=== PATIENT | female | born 1940 | race Caucasian/White ===

== ENCOUNTER 2016-04-17 12:35 | Emergency (ER) | payer MEDICARE ==
[~2016-04-17 12:35] MED LIST: AMLO25TA PO; CALC600T7 PO; CLOT1CRE71 TOP; ECOT325T3 PO; FISH500C PO; KEFL500C7 PO; MAGN250T2 PO; OMEP20CA3 PO; OXYB10TA PO; SIMV10TA2 PO; VITA1TAB7 PO; VITA500T53 PO; [UNRECOGNIZED DRUG - CODE] PO; [UNRECOGNIZED DRUG - CODE] PO
[2016-04-17] MEDS ORDERED: ONDANSETRON 4MG/2ML VIAL (J2405) As Ordered ONE (14:05)
[2016-04-17] MEDS ORDERED: GASTROGRAFIN SOLUTION 30ML (Q9963) As Ordered ONE (14:09)
[2016-04-17 14:22] LABS: RENAL EPITHELIAL CELLS 1 /HPF
[2016-04-17 14:28] LABS: BASO % 0.2 % (0.0-1.0); EOS # 0.3 K/mm3 (0.0-0.50); EOS % 4.6 % (0.0-3.0); LARGE UNSTAINED CELL # 0.1 K/mm3 (0.0-0.4); LARGE UNSTAINED CELL % 2.5 % (0.0-4.0); LYMPH # 0.5 K/mm3 (1.5-4.5); MEAN CORPUSCULAR HEMOGLOBIN 28.5 pg (27.0-33.0); MEAN CORPUSCULAR HGB CONC 32.8 g/dl (32.0-36.5); MONO # 0.2 K/mm3 (0.0-0.8); MONO % 3.5 % (0.0-5.0); NEUTROPHILS # 4.6 K/mm3 (1.8-7.7); NEUTROPHILS % 80.2 % (36.0-66.0); PLATELET COUNT, AUTOMATED 194 k/mm3 (150-450); RED CELL DISTRIBUTION WIDTH 13.4 % (11.5-14.5); WHITE BLOOD COUNT 5.7 K/mm3 (4.0-10.0)
[2016-04-17 14:50] LABS: ALBUMIN 3.3 GM/DL (3.2-5.2); ALBUMIN/GLOBULIN RATIO 0.73 (1.00-1.93); BILIRUBIN,DIRECT 2.1 MG/DL (0.0-0.2); BILIRUBIN,TOTAL 2.7 MG/DL (0.2-1.0); CALCIUM LEVEL 8.8 MG/DL (8.8-10.2); CREATININE FOR GFR 1.3 MG/DL (0.55-1.02); GLOMERULAR FILTRATION RATE 42.4 (>39); POTASSIUM SERUM 3.4 MEQ/L (3.5-5.1); TOTAL PROTEIN 7.8 GM/DL (6.4-8.2)
[2016-04-17 14:50] LABS: MICROSCOPIC INDICATED? NO (NO)
[2016-04-17] MEDS ORDERED: ISOVUE-370 76% 100ML VIAL (Q9967) As Ordered ONE (15:34)
--- NOTE | 2016-04-17 16:08 | REP ---
CT abdomen and pelvis with IV and oral contrast: History: Question obstruction, abdominal pain. Generalized. Comparison CT study is from 03/27/2016 done at [facility]. This comparison study was read as showing evidence of mesenteric panniculitis and prior cholecystectomy and hysterectomy. CT contrast dose: 100 mL of Isovue 370 is administered intravenously. Findings: Digital preliminary aircraft captain radiograph demonstrates a dextroconvex curve and clips in the right upper quadrant. Bowel gas pattern is normal. The patient status post left mastectomy and prosthesis is visible. The lung bases are essentially clear except for mild bibasilar fibrosis. No pleural effusion is seen. There is a granulomatous calcification in the dome of the liver unchanged from the comparison study. No focal liver mass lesion is seen. The spleen is unremarkable. No adrenal lesion is seen on either side. There is a cyst in the upper pole of the right kidney measuring 2.8 cm in greatest diameter. No pancreatic abnormality is observed. Gallbladder surgically absent. The abdominal aorta is quite tortuous but non-aneurysmal. Atherosclerotic vascular calcification is seen. No retroperitoneal mass or adenopathy is seen. A normal appendix is seen against the pelvic side wall. No ovarian abnormality is seen. Uterus is surgically absent. The urinary bladder is intact. Small and large intestinal bowel loops are normal in the abdomen and pelvis. There is a very small sliding-type hiatal hernia. No other abdominal wall defect is seen. Bone window settings show no bony destructive lesion. There is degenerative disc changes in the lumbar spine. The small bowel mesenteric changes noted previously are again seen unchanged. Impression: 1. Small sliding-type hiatal hernia. 2. 2.8 cm right renal cyst. 3. Tortuous abdominal aorta with atherosclerotic changes. 4. Post-cholecystectomy and hysterectomy. 5. No acute intra-abdominal abnormality. 6. The scattered mesenteric lymph nodes, mesenteric lymph node calcifications, and mild fibrotic changes in the mesenteric fat seen on the previous study are again noted unchanged. Signed by Regulo Marshall MD 04/17/2016 04:44 P
[2016-04-17] MEDS ORDERED: MAGNESIUM CITRATE 300 ML BTL As Ordered ONE (17:00)
--- NOTE | 2016-04-17 17:12 | EDDOCDS ---
Physician Documentation [facility] Name: Jackson Tobias Age: 76 yrs Sex: Female : 1940 Arrival Date: 04/17/2016 Time: 12:35 Bed I6 / 28 Private MD: Treva Cowan R Disposition: 04/17/16 16:31 Discharged to Home/Self Care. Impression: Generalized abdominal pain, Constipation, unspecified. - Condition is Stable. - Discharge Instructions: Abdominal Pain, Adult, Constipation, Adult. - Medication Reconciliation, Local Pharmacy Hours form. - Follow up: Emergency Department; When: As needed; Reason: Worsening of conditions. Follow up: Private Physician; When: 2 - 3 days; Reason: Wound/Symptom Recheck, Recheck today's complaints, Continuance of care. - Problem is new. - Symptoms are unchanged. - Notes: DRINK HALF THE BOTTLE OF MAG CITRATE WITH SOME GATORADE AT HOME TONIGHT. IF YOU ARE NOT HAVING ANY RESULTS WITH THIS AFTER APPROXIMATELY 1-2 HOURS, YOU MAY DRINK THE REST OF THE BOTTLE. IT IS ADVISED TO STAY HOME NEAR THE BATHROOM AFTER YOU START TO DRINK THIS, IT CAN WORK FAST TO HELP MOVE YOUR BOWELS. FOLLOW UP WITH YOUR PRIMARY CARE PROVIDER WITHIN THE NEXT FEW DAYS AND RETURN TO THE ER WITH ANY WORSENING SYMPTOMS. Historical: - Allergies: SULFA (SULFONAMIDES); - Home Meds: 1. oxybutynin chloride 5 mg Oral tab 2 times per day 2. simvastatin 20 mg oral tab once daily 3. omeprazole 40 mg Oral cpDR 1 cap 2 times per day 4. aspirin 325 mg Oral tab 1 tab once daily 5. amlodipine 2.5 mg Oral tab once daily 6. Miralax 17 gram Oral pwpk 1 packet once daily 7. clotrimazole and betamethasone cream 0.005% daily 8. Calcium + Vitamin D 630mg and 400mg vit d Oral daily 9. shark cartilage (bulk) 750mg 2.25gm miscellaneous powd twice a day 10. triple omega 3-6-9 w/fish flax and borage oils daily 11. BCG treatments - PMHx: left breast cancer; cancerous tumors bladder; Hypercholesterolemia; GERD; Hypertension; constipation; TIA; - PSHx: bladder resection; Cholecystectomy; Hysterectomy; breast surgery; Endoscopy, Lower; Endoscopy, Upper; - Social history: Smoking status: Patient states former smoker of tobacco. No barriers to communication noted, The patient speaks fluent Swedish, Speaks appropriately for age. - Family history: Not pertinent. - : The pt / caregiver states he / she is not on anticoagulants. Home medication list is obtained from the patient. - Exposure Risk Screening:: None identified. Vital Signs: 04/17 12:37 BP 126 / 81; Pulse 120; Resp 20; Temp 98.9(O); Pulse Ox 96% on R/A; Weight 80.29 kg / ct3 177.01 lbs (R); Height 5 ft. 8 in. (172.72 cm) (R); Pain 0/10; 17:08 BP 120 / 80; Pulse 104; Resp 16; Temp 97.3(O); jmk 12:37 Body Mass Index 26.91 (80.29 kg, 172.72 cm) ct3 MDM: 13:35 Financial registration complete. lg 13:51 Ondansetron 4 mg IVP once ordered. dt4 13:51 IV Saline Lock ordered. dt4 13:51 Undress patient appropriately for examination ordered. dt4 13:51 NS 0.9% 500 ml IV at bolus once ordered. dt4 13:52 Amylase Ordered. EDMS 13:52 Basic Metabolic Profile Ordered. EDMS 13:52 CBC with Diff Ordered. EDMS 13:52 Lipase Ordered. EDMS 13:52 Liver Profile Ordered. EDMS 13:52 Urinalysis Ordered. EDMS 13:52 Urine Culture Ordered. EDMS 13:52 CT ABD & PELVIS: IV and Oral Contrast Ordered. EDMS 13:53 NOTHING BY MOUTH+DIET ordered. EDMS 14:17 [facility] Payment Agreement was scanned into [employer] and attached to record. lg 14:19 Diatrizoate Meglumine & Sodium Liquid 10 ml PO once; mix in 290cc of water - admin at kc3 2:40 ordered. 14:19 Diatrizoate Meglumine & Sodium Liquid 10 ml PO once; mix in 290cc of water - admin at kc3 2:40 ordered. 16:23 Magnesium Citrate Liquid 300 ml PO once; Dispense home with pt. ordered. dt4 Administered Medications: 14:19 Drug: NS 0.9% 500 ml [sodium chloride 0.9 % intravenous solution] Route: IV; Rate: kc3 bolus; Site: right antecubital; 14:53 Follow up: IV Status: Completed infusion kc3 14:20 Drug: Ondansetron 4 mg [ondansetron HCl 2 mg/mL intravenous solution (2 mL)] Route: kc3 IVP; Site: right antecubital; 14:21 Drug: Diatrizoate Meglumine & Sodium 10 ml [diatrizoate meglumine and diat.sodium 66 kc3 %-10 % oral solution (10 mL)] Route: PO; 14:52 Drug: Diatrizoate Meglumine & Sodium 10 ml [diatrizoate meglumine and diat.sodium 66 kc3 %-10 % oral solution (10 mL)] Route: PO; 17:08 Drug: Magnesium Citrate 300 ml [magnesium citrate oral solution (300 mL)] Route: PO; britney Signatures: Dispatcher [employer] EDJackson Nixon RN RN jmk Michelson, Staci, RN RN srm Ganter, LoriLee, Reg Reg lg Mohini Rodriguez, PA-C PA-C dt4 Khalida VerdeRN RN kc3 The chart was reviewed and I authenticate all verbal orders and agree with the evaluation and treatment provided.Attachments: 14:17 [facility] Payment Agreement lg MTDD
--- NOTE | 2016-04-17 17:12 | EDDOCDS ---
Nurse's Notes [facility] Name: Jackson Tobias Age: 76 yrs Sex: Female : 1940 Arrival Date: 04/17/2016 Time: 12:35 Bed I6 / 28 Private MD: Treva Cowan R Diagnosis: Generalized abdominal pain;Constipation, unspecified Presentation: 04/17 12:37 Presenting complaint: Patient states: last BM March. had enema wed night and had srm some mucous and again yesterday and had small amount. constipation has been since March. Adult Sepsis Screening: The patient does not have new or worsening altered mentation. Patient's respiratory rate is less than 22. Systolic blood pressure is greater than 100. Patient has a qSOFA score of 0- Negative Sepsis Screen. Suicide/Homicide risk assessment- the patient denies having any suicidal and/or homicidal ideations and does not present with any other emotional, behavioral or mental health complaints. Status: Patient is not a substance abuse services director or dependent. Transition of care: patient was not received from another setting of care. 12:37 Acuity: LOREE Level 3 srm 12:37 Method Of Arrival: Walkin/Carried/Asstd srm Triage Assessment: 12:48 General: Appears in no apparent distress, Behavior is appropriate for age, cooperative. srm Pain: Denies pain. GI: Reports constipation, nausea. Historical: - Allergies: SULFA (SULFONAMIDES); - Home Meds: 1. oxybutynin chloride 5 mg Oral tab 2 times per day 2. simvastatin 20 mg oral tab once daily 3. omeprazole 40 mg Oral cpDR 1 cap 2 times per day 4. aspirin 325 mg Oral tab 1 tab once daily 5. amlodipine 2.5 mg Oral tab once daily 6. Miralax 17 gram Oral pwpk 1 packet once daily 7. clotrimazole and betamethasone cream 0.005% daily 8. Calcium + Vitamin D 630mg and 400mg vit d Oral daily 9. shark cartilage (bulk) 750mg 2.25gm miscellaneous powd twice a day 10. triple omega 3-6-9 w/fish flax and borage oils daily 11. BCG treatments - PMHx: left breast cancer; cancerous tumors bladder; Hypercholesterolemia; GERD; Hypertension; constipation; TIA; - PSHx: bladder resection; Cholecystectomy; Hysterectomy; breast surgery; Endoscopy, Lower; Endoscopy, Upper; - Social history: Smoking status: Patient states former smoker of tobacco. No barriers to communication noted, The patient speaks fluent Estonian, Speaks appropriately for age. - Family history: Not pertinent. - : The pt / caregiver states he / she is not on anticoagulants. Home medication list is obtained from the patient. - Exposure Risk Screening:: None identified. Screenin:02 Screening information is obtained from the patient. Fall risk: No risks identified. kc3 Assistance ADL's: requires no assistance with activities of daily living. Abuse/DV Screen: The patient / caregiver reports he/she is: not in a situation that causes fear, pain or injury. Nutritional screening: No deficits noted. home support is adequate. 17:08 Advance Directives: Currently, there is no health care proxy. There is no active DNR k order. There is no living will. There is no Power of Manager Client. Advance directive information has not previously been placed in an [facility] medical record. Assessment: 14:00 General: Appears in no apparent distress, comfortable, Behavior is appropriate for age, kc3 cooperative. Neurological: Level of Consciousness is awake, alert, obeys commands, Oriented to person, place, time. Respiratory: Respiratory effort is even, unlabored. GI: Abdomen is obese, Bowel sounds present X 4 quads. Abd is soft and non tender X 4 quads. Reports constipation. Derm: Skin is pink, warm & dry. 14:37 Adult Sepsis Screening: The patient does not have new or worsening altered mentation. kc3 Patient's respiratory rate is less than 22. Systolic blood pressure is greater than 100. Patient has a qSOFA score of 0- Negative Sepsis Screen. 15:22 General:. kc3 17:08 General: Appears receptive to discharge regarding use of citrate of magnesium. [facility] Vital Signs: 12:37 BP 126 / 81; Pulse 120; Resp 20; Temp 98.9(O); Pulse Ox 96% on R/A; Weight 80.29 kg ct3 (R); Height 5 ft. 8 in. (172.72 cm) (R); Pain 0/10; 17:08 BP 120 / 80; Pulse 104; Resp 16; Temp 97.3(O); jmk 12:37 Body Mass Index 26.91 (80.29 kg, 172.72 cm) ct3 Vitals: 12:37 Log In Time: April 17, 2016 at 12:35. ct3 ED Course: 12:36 Patient visited by Gina Porras PCA. ct3 12:36 Treva Cowan is Private Physician. ct3 12:36 Patient moved to Waiting ct3 12:38 Patient moved to Pre RCE ct3 12:39 Triage Initiated srm 13:09 Patient moved to Triage 3 dy 13:13 Patient visited by Jovita Ashraf PCA. jb5 13:20 Mohini Rodriguez PA-C is PHCP. dt4 13:20 Alexia Galeas MD is Attending Physician. dt4 13:21 Patient visited by Mohini Rodriguez PA-C. dt4 13:46 Patient moved to I6 jb5 13:59 Patient visited by Jovita Ashraf PCA. jb5 13:59 Urinalysis Sent. jb5 13:59 Urine Culture Sent. jb5 14:16 Patient name changed from Jackson\S\K\S\Jatinder\S\ to Jackson\S\Skye\S\Jatinder. EDMS 14:17 [facility] Payment Agreement was scanned into [employer] and attached to record. lg 14:19 Amylase Sent. kc3 14:19 Basic Metabolic Profile Sent. kc3 14:20 Patient visited by Khalida Verde RN. kc3 14:20 CBC with Diff Sent. kc3 14:20 Lipase Sent. kc3 14:20 Liver Profile Sent. kc3 14:20 Inserted saline lock: 20 gauge in right antecubital area and blood collected. The kc3 patient tolerated the procedure well. performed by Jackson Acuna RN. 14:52 Patient visited by Khalida Verde RN. kc3 15:03 The patient / caregiver is instructed regarding the plan of care and ED course. kc3 15:49 Patient visited by Khalida Verde RN. kc3 16:22 CT ABD & PELVIS: IV and Oral Contrast Returned. EDMS 17:08 Discontinued lock intact, bleeding controlled, pressure dressing applied, No jmk redness/swelling at site. No procedures done that require assistance. Administered Medications: 14:19 Drug: NS 0.9% 500 ml [sodium chloride 0.9 % intravenous solution] Route: IV; Rate: kc3 bolus; Site: right antecubital; 14:53 Follow up: IV Status: Completed infusion kc3 14:20 Drug: Ondansetron 4 mg [ondansetron HCl 2 mg/mL intravenous solution (2 mL)] Route: kc3 IVP; Site: right antecubital; 14:21 Drug: Diatrizoate Meglumine & Sodium 10 ml [diatrizoate meglumine and diat.sodium 66 kc3 %-10 % oral solution (10 mL)] Route: PO; 14:52 Drug: Diatrizoate Meglumine & Sodium 10 ml [diatrizoate meglumine and diat.sodium 66 kc3 %-10 % oral solution (10 mL)] Route: PO; 17:08 Drug: Magnesium Citrate 300 ml [magnesium citrate oral solution (300 mL)] Route: PO; [facility] Order Results: Lab Order: Amylase; SPEC'M 04/17/16 14:08 Test: AMYLASE; Value: 35; Range: 25-115; Units: U/L; Status: F Lab Order: Basic Metabolic Profile; SPEC'M 04/17/16 14:08 Test: GLUCOSE, FASTING; Value: 111; Range: 83-110; Abnormal: Above high normal; Units: MG/DL; Status: F Test: BLOOD UREA NITROGEN; Value: 21; Range: 7-18; Abnormal: Above high normal; Units: MG/DL; Status: F Test: CREATININE FOR GFR; Value: 1.30; Range: 0.55-1.02; Abnormal: Above high normal; Units: MG/DL; Status: F Test: GLOMERULAR FILTRATION RATE; Value: 42.4; Range: >39; Status: F Test: SODIUM LEVEL; Value: 136; Range: 136-145; Units: MEQ/L; Status: F Test: POTASSIUM SERUM; Value: 3.4; Range: 3.5-5.1; Abnormal: Below low normal; Units: MEQ/L; Status: F Test: CHLORIDE LEVEL; Value: 102; Range: 98-107; Units: MEQ/L; Status: F Test: CARBON DIOXIDE LEVEL; Value: 22; Range: 21-32; Units: MEQ/L; Status: F Test: ANION GAP; Value: 12; Range: 8-16; Units: MEQ/L; Status: F Test: CALCIUM LEVEL; Value: 8.8; Range: 8.8-10.2; Units: MG/DL; Status: F Test Note: ; Units are mL/min/1.73 m2 Chronic Kidney Disease Staging per NKF: Stage I & II GFR >=60 Normal to Mildly Decreased Stage III GFR 30-59 Moderately Decreased Stage IV GFR 15-29 Severely Decreased Stage V GFR <15 Very Little GFR Left ESRD GFR <15 on 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 Lab Order: CBC with Diff; SPEC'M 04/17/16 14:08 Test: WHITE BLOOD COUNT; Value: 5.7; Range: 4.0-10.0; Units: K/mm3; Status: F Test: RED BLOOD COUNT; Value: 5.48; Range: 4.00-5.40; Abnormal: Above high normal; Units: M/mm3; Status: F Test: HEMOGLOBIN; Value: 15.6; Range: 12.0-16.0; Units: g/dl; Status: F Test: HEMATOCRIT; Value: 47.7; Range: 36.0-47.0; Abnormal: Above high normal; Units: %; Status: F Test: MEAN CORPUSCULAR VOLUME; Value: 87.0; Range: 80.0-96.0; Units: fl; Status: F Test: MEAN CORPUSCULAR HEMOGLOBIN; Value: 28.5; Range: 27.0-33.0; Units: pg; Status: F Test: MEAN CORPUSCULAR HGB CONC; Value: 32.8; Range: 32.0-36.5; Units: g/dl; Status: F Test: RED CELL DISTRIBUTION WIDTH; Value: 13.4; Range: 11.5-14.5; Units: %; Status: F Test: PLATELET COUNT, AUTOMATED; Value: 194; Range: 150-450; Units: k/mm3; Status: F Test: NEUTROPHILS %; Value: 80.2; Range: 36.0-66.0; Abnormal: Above high normal; Units: %; Status: F Test: LYMPH %; Value: 9.0; Range: 24.0-44.0; Abnormal: Below low normal; Units: %; Status: F Test: MONO %; Value: 3.5; Range: 0.0-5.0; Units: %; Status: F Test: EOS %; Value: 4.6; Range: 0.0-3.0; Abnormal: Above high normal; Units: %; Status: F Test: BASO %; Value: 0.2; Range: 0.0-1.0; Units: %; Status: F Test: LARGE UNSTAINED CELL %; Value: 2.5; Range: 0.0-4.0; Units: %; Status: F Test: NEUTROPHILS #; Value: 4.6; Range: 1.8-7.7; Units: K/mm3; Status: F Test: LYMPH #; Value: 0.5; Range: 1.5-4.5; Abnormal: Below low normal; Units: K/mm3; Status: F Test: MONO #; Value: 0.2; Range: 0.0-0.8; Units: K/mm3; Status: F Test: EOS #; Value: 0.3; Range: 0.0-0.50; Units: K/mm3; Status: F Test: BASO #; Value: 0.0; Range: 0.0-0.2; Units: K/mm3; Status: F Test: LARGE UNSTAINED CELL #; Value: 0.1; Range: 0.0-0.4; Units: K/mm3; Status: F Lab Order: Lipase; SPEC'M 04/17/16 14:08 Test: LIPASE; Value: 111; Range: 73-393; Units: U/L; Status: F Lab Order: Liver Profile; SPEC'M 04/17/16 14:08 Test: AST/SGOT; Value: 115; Range: 15-37; Abnormal: Above high normal; Units: U/L; Status: F Test: ALT/SGPT; Value: 209; Range: 12-78; Abnormal: Above high normal; Units: U/L; Status: F Test: ALKALINE PHOSPHATASE; Value: 295; Range: 45-117; Abnormal: Above high normal; Units: U/L; Status: F Test: BILIRUBIN,TOTAL; Value: 2.7; Range: 0.2-1.0; Abnormal: Above high normal; Units: MG/DL; Status: F Test: BILIRUBIN,DIRECT; Value: 2.1; Range: 0.0-0.2; Abnormal: Above high normal; Units: MG/DL; Status: F Test: TOTAL PROTEIN; Value: 7.8; Range: 6.4-8.2; Units: GM/DL; Status: F Test: ALBUMIN; Value: 3.3; Range: 3.2-5.2; Units: GM/DL; Status: F Test: ALBUMIN/GLOBULIN RATIO; Value: 0.73; Range: 1.00-1.93; Abnormal: Below low normal; Status: F Lab Order: Urinalysis; SPEC'M 04/17/16 13:56 Test: APPEARANCE, URINE; Value: HAZY; Range: CLEAR; Status: F Test: COLOR, URINE; Value: KEISHA; Range: YELLOW; Status: F Test: PH,URINE; Value: 5.0; Range: 5.0-9.0; Units: UNITS; Status: F Test: SPECIFIC GRAVITY URINE AUTO; Value: 1.029; Range: 1.002-1.035; Status: F Test: PROTEIN, URINE AUTO; Value: 1+; Range: NEGATIVE; Abnormal: Above high normal; Units: mg/dL; Status: F Test: GLUCOSE, URINE (UA) AUTO; Value: NEGATIVE; Range: NEGATIVE; Units: mg/dL; Status: F Test: KETONE, URINE AUTO; Value: TRACE; Range: NEGATIVE; Abnormal: Above high normal; Units: mg/dL; Status: F Test: UROBILINOGEN, URINE AUTO; Value: 4.0; Range: 0.0-2.0; Abnormal: Above high normal; Units: mg/dL; Status: F Test: BILIRUBIN, URINE AUTO; Value: 2+; Range: NEGATIVE; Abnormal: Above high normal; Status: F Test: NITRITE, URINE AUTO; Value: NEGATIVE; Range: NEGATIVE; Status: F Test: LEUKOCYTE ESTERASE, URINE AUTO; Value: NEGATIVE; Range: NEGATIVE; Status: F Test: BLOOD, URINE BLOOD; Value: NEGATIVE; Range: NEGATIVE; Status: F Test: WBC, URINE AUTO; Value: 34; Range: 0-3; Abnormal: Above high normal; Units: /HPF; Status: F Test: RBC, URINE AUTO; Value: 0; Range: 0-3; Units: /HPF; Status: F Test: BACTERIA, URINE AUTO; Value: NEGATIVE; Range: NEGATIVE; Status: F Test: SQUAMOUS EPITHELIAL CELL UR AU; Value: 10; Range: 0-6; Units: /HPF; Status: F Test: TRANSITIONAL EPITHELIAL AUTO; Value: 1; Range: NONE; Units: /HPF; Status: F Test: RENAL EPITHELIAL CELLS; Value: 1; Range: NONE; Units: /HPF; Status: F Test: MUCUS, URINE; Value: SMALL; Range: NEGATIVE; Status: F Test: HYALINE CAST, URINE AUTO; Value: 37; Range: 0-1; Units: /LPF; Status: F Test: GRANULAR CAST, URINE AUTO; Value: 8; Range: NONE; Units: /LPF; Status: F Test: CELLULAR CASTS, URINE AUTO; Value: 8; Range: <1; Abnormal: Above high normal; Units: /LPF; Status: F Radiology Order: CT ABD & PELVIS: IV and Oral Contrast Test: CT ABD & PELVIS: IV and Oral Contrast REASON FOR EXAMINATION: ?OBSTRUCTION;Abd. Pain - Generalized, Nn-focal Exam; CT abdomen and pelvis with IV and oral contrast:; ; History: Question obstruction, abdominal pain. Generalized.; ; Comparison CT study is from 03/27/2016 done at [facility]. 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 Bowel gas pattern is normal. The patient; status post left mastectomy and prosthesis is visible. The lung bases are; essentially clear except for mild bibasilar fibrosis. No pleural effusion is; seen. There is a granulomatous calcification in the dome of the liver unchanged; from the comparison study. No focal liver mass lesion is seen. The spleen is; unremarkable. No adrenal lesion is seen on either side. There is a cyst in the; upper pole of the right kidney measuring 2.8 cm in greatest diameter. No; pancreatic abnormality is observed. Gallbladder surgically absent. The; abdominal aorta is quite tortuous but non-aneurysmal. Atherosclerotic vascular; calcification is seen. No retroperitoneal mass or adenopathy is seen. A normal; appendix is seen against the pelvic side wall. No ovarian abnormality is seen.; Uterus is surgically absent. The urinary bladder is intact. Small and large; intestinal bowel loops are normal in the abdomen and pelvis. There is a very; small sliding-type hiatal hernia. No other abdominal wall defect is seen. Bone; window settings show no bony destructive lesion. There is degenerative disc; changes in the lumbar spine. The small bowel mesenteric changes noted previously; are again seen unchanged.; ; Impression:; 1. Small sliding-type hiatal hernia.; 2. 2.8 cm right renal cyst.; 3. Tortuous abdominal aorta with atherosclerotic changes.; 4. Post-cholecystectomy and hysterectomy.; 5. No acute intra-abdominal abnormality.; 6. The scattered mesenteric lymph nodes, mesenteric lymph node calcifications,; and mild fibrotic changes in the mesenteric fat seen on the previous study are; again noted unchanged.; ; ; ; ; Unreviewed; Outcome: 16:31 Discharge ordered by Provider. dt4 17:08 Discharge Assessment: Patient awake, alert and oriented x 3. No cognitive and/or jmk functional deficits noted. Patient verbalized understanding of disposition instructions. patient administered narcotics - no. The following High Risk Discharge criteria are identified: None. Discharged to home ambulatory. Condition: good. Discharge instructions given to patient, Instructed on discharge instructions, follow up and referral plans. medication usage, Demonstrated understanding of instructions, medications, Pt was receptive of discharge instructions/ teaching. CT Study completed. Property :Personal belongings accompany Pt. 17:11 Patient left the ED. britney Signatures: Dispatcher [employer] EDJackson Nixon,RN Ericka Chan, RN RN Francisca Goldberg, Reg Reg lg Yunior Wasserman, RN RN Jovita Gomez, SAS ADMINISTRATOR SAS ADMINISTRATOR jb5 Gina Porras, SAS ADMINISTRATOR SAS ADMINISTRATOR ct3 Mohini Rodriguez, PA-Nicho PA-C dt4 Khalida Verde,RN RN kc3 MTDD
--- NOTE | 2016-04-19 18:12 | EDDOCDS ---
Physician Documentation [facility] Name: Jackson Tobias Age: 76 yrs Sex: Female : 1940 Arrival Date: 04/17/2016 Time: 12:35 Bed I6 / 28 Private MD: Treva Cowan R Disposition: 04/17/16 16:31 Discharged to Home/Self Care. Impression: Generalized abdominal pain, Constipation, unspecified. - Condition is Stable. - Discharge Instructions: Abdominal Pain, Adult, Constipation, Adult. - Medication Reconciliation, Local Pharmacy Hours form. - Follow up: Emergency Department; When: As needed; Reason: Worsening of conditions. Follow up: Private Physician; When: 2 - 3 days; Reason: Wound/Symptom Recheck, Recheck today's complaints, Continuance of care. - Problem is new. - Symptoms are unchanged. - Notes: DRINK HALF THE BOTTLE OF MAG CITRATE WITH SOME GATORADE AT HOME TONIGHT. IF YOU ARE NOT HAVING ANY RESULTS WITH THIS AFTER APPROXIMATELY 1-2 HOURS, YOU MAY DRINK THE REST OF THE BOTTLE. IT IS ADVISED TO STAY HOME NEAR THE BATHROOM AFTER YOU START TO DRINK THIS, IT CAN WORK FAST TO HELP MOVE YOUR BOWELS. FOLLOW UP WITH YOUR PRIMARY CARE PROVIDER WITHIN THE NEXT FEW DAYS AND RETURN TO THE ER WITH ANY WORSENING SYMPTOMS. Historical: - Allergies: SULFA (SULFONAMIDES); - Home Meds: 1. oxybutynin chloride 5 mg Oral tab 2 times per day 2. simvastatin 20 mg oral tab once daily 3. omeprazole 40 mg Oral cpDR 1 cap 2 times per day 4. aspirin 325 mg Oral tab 1 tab once daily 5. amlodipine 2.5 mg Oral tab once daily 6. Miralax 17 gram Oral pwpk 1 packet once daily 7. clotrimazole and betamethasone cream 0.005% daily 8. Calcium + Vitamin D 630mg and 400mg vit d Oral daily 9. shark cartilage (bulk) 750mg 2.25gm miscellaneous powd twice a day 10. triple omega 3-6-9 w/fish flax and borage oils daily 11. BCG treatments - PMHx: left breast cancer; cancerous tumors bladder; Hypercholesterolemia; GERD; Hypertension; constipation; TIA; - PSHx: bladder resection; Cholecystectomy; Hysterectomy; breast surgery; Endoscopy, Lower; Endoscopy, Upper; - Social history: Smoking status: Patient states former smoker of tobacco. No barriers to communication noted, The patient speaks fluent Turkmen, Speaks appropriately for age. - Family history: Not pertinent. - : The pt / caregiver states he / she is not on anticoagulants. Home medication list is obtained from the patient. - Exposure Risk Screening:: None identified. Vital Signs: 04/17 12:37 BP 126 / 81; Pulse 120; Resp 20; Temp 98.9(O); Pulse Ox 96% on R/A; Weight 80.29 kg / ct3 177.01 lbs (R); Height 5 ft. 8 in. (172.72 cm) (R); Pain 0/10; 17:08 BP 120 / 80; Pulse 104; Resp 16; Temp 97.3(O); jmk 12:37 Body Mass Index 26.91 (80.29 kg, 172.72 cm) ct3 MDM: 13:35 Financial registration complete. lg 13:51 Ondansetron 4 mg IVP once ordered. dt4 13:51 IV Saline Lock ordered. dt4 13:51 Undress patient appropriately for examination ordered. dt4 13:51 NS 0.9% 500 ml IV at bolus once ordered. dt4 13:52 Amylase Ordered. EDMS 13:52 Basic Metabolic Profile Ordered. EDMS 13:52 CBC with Diff Ordered. EDMS 13:52 Lipase Ordered. EDMS 13:52 Liver Profile Ordered. EDMS 13:52 Urinalysis Ordered. EDMS 13:52 Urine Culture Ordered. EDMS 13:52 CT ABD & PELVIS: IV and Oral Contrast Ordered. EDMS 13:53 NOTHING BY MOUTH+DIET ordered. EDMS 14:17 [facility] Payment Agreement was scanned into [employer] and attached to record. lg 14:19 Diatrizoate Meglumine & Sodium Liquid 10 ml PO once; mix in 290cc of water - admin at kc3 2:40 ordered. 14:19 Diatrizoate Meglumine & Sodium Liquid 10 ml PO once; mix in 290cc of water - admin at kc3 2:40 ordered. 16:23 Magnesium Citrate Liquid 300 ml PO once; Dispense home with pt. ordered. dt4 04/18 09:29 T-Sheet-- Draft Copy was scanned into [employer] and attached to record. gb 09:29 Radiology Report was scanned into [employer] and attached to record. gb Administered Medications: 04/17 14:19 Drug: NS 0.9% 500 ml [sodium chloride 0.9 % intravenous solution] Route: IV; Rate: kc3 bolus; Site: right antecubital; 14:53 Follow up: IV Status: Completed infusion kc3 14:20 Drug: Ondansetron 4 mg [ondansetron HCl 2 mg/mL intravenous solution (2 mL)] Route: kc3 IVP; Site: right antecubital; 14:21 Drug: Diatrizoate Meglumine & Sodium 10 ml [diatrizoate meglumine and diat.sodium 66 kc3 %-10 % oral solution (10 mL)] Route: PO; 14:52 Drug: Diatrizoate Meglumine & Sodium 10 ml [diatrizoate meglumine and diat.sodium 66 kc3 %-10 % oral solution (10 mL)] Route: PO; 17:08 Drug: Magnesium Citrate 300 ml [magnesium citrate oral solution (300 mL)] Route: PO; britney Signatures: Dispatcher [employer] Jackson Noriega,RN Ericka Chan, Aracelis Sauer RN, Reg Reg gb Francisca Bernal, Reg Reg lg Mohini Rodriguez PA-C PACharan dt4 Khalida Verde,RN RN kc3 The chart was reviewed and I authenticate all verbal orders and agree with the evaluation and treatment provided.Attachments: 14:17 [facility] Payment Agreement lg 04/18 09:29 T-Sheet-- Draft Copy Chart Complete MTDD
--- NOTE | 2016-04-19 18:13 | EDDOCDS ---
Physician Documentation [facility] Name: Jackson Tobias Age: 76 yrs Sex: Female : 1940 Arrival Date: 04/17/2016 Time: 12:35 Bed I6 / 28 Private MD: Treva Cowan R Disposition: 04/17/16 16:31 Discharged to Home/Self Care. Impression: Generalized abdominal pain, Constipation, unspecified. - Condition is Stable. - Discharge Instructions: Abdominal Pain, Adult, Constipation, Adult. - Medication Reconciliation, Local Pharmacy Hours form. - Follow up: Emergency Department; When: As needed; Reason: Worsening of conditions. Follow up: Private Physician; When: 2 - 3 days; Reason: Wound/Symptom Recheck, Recheck today's complaints, Continuance of care. - Problem is new. - Symptoms are unchanged. - Notes: DRINK HALF THE BOTTLE OF MAG CITRATE WITH SOME GATORADE AT HOME TONIGHT. IF YOU ARE NOT HAVING ANY RESULTS WITH THIS AFTER APPROXIMATELY 1-2 HOURS, YOU MAY DRINK THE REST OF THE BOTTLE. IT IS ADVISED TO STAY HOME NEAR THE BATHROOM AFTER YOU START TO DRINK THIS, IT CAN WORK FAST TO HELP MOVE YOUR BOWELS. FOLLOW UP WITH YOUR PRIMARY CARE PROVIDER WITHIN THE NEXT FEW DAYS AND RETURN TO THE ER WITH ANY WORSENING SYMPTOMS. Historical: - Allergies: SULFA (SULFONAMIDES); - Home Meds: 1. oxybutynin chloride 5 mg Oral tab 2 times per day 2. simvastatin 20 mg oral tab once daily 3. omeprazole 40 mg Oral cpDR 1 cap 2 times per day 4. aspirin 325 mg Oral tab 1 tab once daily 5. amlodipine 2.5 mg Oral tab once daily 6. Miralax 17 gram Oral pwpk 1 packet once daily 7. clotrimazole and betamethasone cream 0.005% daily 8. Calcium + Vitamin D 630mg and 400mg vit d Oral daily 9. shark cartilage (bulk) 750mg 2.25gm miscellaneous powd twice a day 10. triple omega 3-6-9 w/fish flax and borage oils daily 11. BCG treatments - PMHx: left breast cancer; cancerous tumors bladder; Hypercholesterolemia; GERD; Hypertension; constipation; TIA; - PSHx: bladder resection; Cholecystectomy; Hysterectomy; breast surgery; Endoscopy, Lower; Endoscopy, Upper; - Social history: Smoking status: Patient states former smoker of tobacco. No barriers to communication noted, The patient speaks fluent Sinhala, Speaks appropriately for age. - Family history: Not pertinent. - : The pt / caregiver states he / she is not on anticoagulants. Home medication list is obtained from the patient. - Exposure Risk Screening:: None identified. Vital Signs: 04/17 12:37 BP 126 / 81; Pulse 120; Resp 20; Temp 98.9(O); Pulse Ox 96% on R/A; Weight 80.29 kg / ct3 177.01 lbs (R); Height 5 ft. 8 in. (172.72 cm) (R); Pain 0/10; 17:08 BP 120 / 80; Pulse 104; Resp 16; Temp 97.3(O); jmk 12:37 Body Mass Index 26.91 (80.29 kg, 172.72 cm) ct3 MDM: 13:35 Financial registration complete. lg 13:51 Ondansetron 4 mg IVP once ordered. dt4 13:51 IV Saline Lock ordered. dt4 13:51 Undress patient appropriately for examination ordered. dt4 13:51 NS 0.9% 500 ml IV at bolus once ordered. dt4 13:52 Amylase Ordered. EDMS 13:52 Basic Metabolic Profile Ordered. EDMS 13:52 CBC with Diff Ordered. EDMS 13:52 Lipase Ordered. EDMS 13:52 Liver Profile Ordered. EDMS 13:52 Urinalysis Ordered. EDMS 13:52 Urine Culture Ordered. EDMS 13:52 CT ABD & PELVIS: IV and Oral Contrast Ordered. EDMS 13:53 NOTHING BY MOUTH+DIET ordered. EDMS 14:17 [facility] Payment Agreement was scanned into [employer] and attached to record. lg 14:19 Diatrizoate Meglumine & Sodium Liquid 10 ml PO once; mix in 290cc of water - admin at kc3 2:40 ordered. 14:19 Diatrizoate Meglumine & Sodium Liquid 10 ml PO once; mix in 290cc of water - admin at kc3 2:40 ordered. 16:23 Magnesium Citrate Liquid 300 ml PO once; Dispense home with pt. ordered. dt4 04/18 09:29 T-Sheet-- Draft Copy was scanned into [employer] and attached to record. gb 09:29 Radiology Report was scanned into [employer] and attached to record. gb Administered Medications: 04/17 14:19 Drug: NS 0.9% 500 ml [sodium chloride 0.9 % intravenous solution] Route: IV; Rate: kc3 bolus; Site: right antecubital; 14:53 Follow up: IV Status: Completed infusion kc3 14:20 Drug: Ondansetron 4 mg [ondansetron HCl 2 mg/mL intravenous solution (2 mL)] Route: kc3 IVP; Site: right antecubital; 14:21 Drug: Diatrizoate Meglumine & Sodium 10 ml [diatrizoate meglumine and diat.sodium 66 kc3 %-10 % oral solution (10 mL)] Route: PO; 14:52 Drug: Diatrizoate Meglumine & Sodium 10 ml [diatrizoate meglumine and diat.sodium 66 kc3 %-10 % oral solution (10 mL)] Route: PO; 17:08 Drug: Magnesium Citrate 300 ml [magnesium citrate oral solution (300 mL)] Route: PO; britney Signatures: Dispatcher [employer] Jackson Noriega,RN Ericka Chan, Aracelis Sauer RN, Reg Reg gb Francisca Bernal, Reg Reg lg Mohini Rodriguez PA-C PACharan dt4 Khalida Verde,RN RN kc3 The chart was reviewed and I authenticate all verbal orders and agree with the evaluation and treatment provided.Attachments: 14:17 [facility] Payment Agreement lg 04/18 09:29 T-Sheet-- Draft Copy Chart Complete MTDD
--- NOTE | 2016-04-19 18:13 | EDDOCDS ---
Nurse's Notes [facility] Name: Jackson Tobias Age: 76 yrs Sex: Female : 1940 Arrival Date: 04/17/2016 Time: 12:35 Bed I6 / 28 Private MD: Treva Cowan R Diagnosis: Generalized abdominal pain;Constipation, unspecified Presentation: 04/17 12:37 Presenting complaint: Patient states: last BM March. had enema wed night and had srm some mucous and again yesterday and had small amount. constipation has been since March. Adult Sepsis Screening: The patient does not have new or worsening altered mentation. Patient's respiratory rate is less than 22. Systolic blood pressure is greater than 100. Patient has a qSOFA score of 0- Negative Sepsis Screen. Suicide/Homicide risk assessment- the patient denies having any suicidal and/or homicidal ideations and does not present with any other emotional, behavioral or mental health complaints. Status: Patient is not a business services associate or dependent. Transition of care: patient was not received from another setting of care. 12:37 Acuity: LOREE Level 3 srm 12:37 Method Of Arrival: Walkin/Carried/Asstd srm Triage Assessment: 12:48 General: Appears in no apparent distress, Behavior is appropriate for age, cooperative. srm Pain: Denies pain. GI: Reports constipation, nausea. Historical: - Allergies: SULFA (SULFONAMIDES); - Home Meds: 1. oxybutynin chloride 5 mg Oral tab 2 times per day 2. simvastatin 20 mg oral tab once daily 3. omeprazole 40 mg Oral cpDR 1 cap 2 times per day 4. aspirin 325 mg Oral tab 1 tab once daily 5. amlodipine 2.5 mg Oral tab once daily 6. Miralax 17 gram Oral pwpk 1 packet once daily 7. clotrimazole and betamethasone cream 0.005% daily 8. Calcium + Vitamin D 630mg and 400mg vit d Oral daily 9. shark cartilage (bulk) 750mg 2.25gm miscellaneous powd twice a day 10. triple omega 3-6-9 w/fish flax and borage oils daily 11. BCG treatments - PMHx: left breast cancer; cancerous tumors bladder; Hypercholesterolemia; GERD; Hypertension; constipation; TIA; - PSHx: bladder resection; Cholecystectomy; Hysterectomy; breast surgery; Endoscopy, Lower; Endoscopy, Upper; - Social history: Smoking status: Patient states former smoker of tobacco. No barriers to communication noted, The patient speaks fluent Omani, Speaks appropriately for age. - Family history: Not pertinent. - : The pt / caregiver states he / she is not on anticoagulants. Home medication list is obtained from the patient. - Exposure Risk Screening:: None identified. Screenin:02 Screening information is obtained from the patient. Fall risk: No risks identified. kc3 Assistance ADL's: requires no assistance with activities of daily living. Abuse/DV Screen: The patient / caregiver reports he/she is: not in a situation that causes fear, pain or injury. Nutritional screening: No deficits noted. home support is adequate. 17:08 Advance Directives: Currently, there is no health care proxy. There is no active DNR k order. There is no living will. There is no Power of Welder [employer]. Advance directive information has not previously been placed in an [facility] medical record. Assessment: 14:00 General: Appears in no apparent distress, comfortable, Behavior is appropriate for age, kc3 cooperative. Neurological: Level of Consciousness is awake, alert, obeys commands, Oriented to person, place, time. Respiratory: Respiratory effort is even, unlabored. GI: Abdomen is obese, Bowel sounds present X 4 quads. Abd is soft and non tender X 4 quads. Reports constipation. Derm: Skin is pink, warm & dry. 14:37 Adult Sepsis Screening: The patient does not have new or worsening altered mentation. kc3 Patient's respiratory rate is less than 22. Systolic blood pressure is greater than 100. Patient has a qSOFA score of 0- Negative Sepsis Screen. 15:22 General:. kc3 17:08 General: Appears receptive to discharge regarding use of citrate of magnesium. [facility] Vital Signs: 12:37 BP 126 / 81; Pulse 120; Resp 20; Temp 98.9(O); Pulse Ox 96% on R/A; Weight 80.29 kg ct3 (R); Height 5 ft. 8 in. (172.72 cm) (R); Pain 0/10; 17:08 BP 120 / 80; Pulse 104; Resp 16; Temp 97.3(O); jmk 12:37 Body Mass Index 26.91 (80.29 kg, 172.72 cm) ct3 Vitals: 12:37 Log In Time: April 17, 2016 at 12:35. ct3 ED Course: 12:36 Patient visited by Gina Porras PCA. ct3 12:36 Treva Cowan is Private Physician. ct3 12:36 Patient moved to Waiting ct3 12:38 Patient moved to Pre RCE ct3 12:39 Triage Initiated srm 13:09 Patient moved to Triage 3 dy 13:13 Patient visited by Jovita Ashraf PCA. jb5 13:20 Mohini Rodriguez PA-C is PHCP. dt4 13:20 Alexia Galeas MD is Attending Physician. dt4 13:21 Patient visited by Mohini Rodriguez PA-C. dt4 13:46 Patient moved to I6 jb5 13:59 Patient visited by Jovita Ashraf PCA. jb5 13:59 Urinalysis Sent. jb5 13:59 Urine Culture Sent. jb5 14:16 Patient name changed from Jackson\S\K\S\Jatinder\S\ to Jackson\S\Skye\S\Jatinder. EDMS 14:17 [facility] Payment Agreement was scanned into [employer] and attached to record. lg 14:19 Amylase Sent. kc3 14:19 Basic Metabolic Profile Sent. kc3 14:20 Patient visited by Khalida Verde RN. kc3 14:20 CBC with Diff Sent. kc3 14:20 Lipase Sent. kc3 14:20 Liver Profile Sent. kc3 14:20 Inserted saline lock: 20 gauge in right antecubital area and blood collected. The kc3 patient tolerated the procedure well. performed by Jackson Acuna RN. 14:52 Patient visited by Khalida Verde,JAMIE. kc3 15:03 The patient / caregiver is instructed regarding the plan of care and ED course. kc3 15:49 Patient visited by Khalida Verde RN. kc3 16:22 CT ABD & PELVIS: IV and Oral Contrast Returned. EDMS 17:08 Discontinued lock intact, bleeding controlled, pressure dressing applied, No jmk redness/swelling at site. No procedures done that require assistance. 04/18 09:29 T-Sheet-- Draft Copy was scanned into [employer] and attached to record. 09:29 Radiology Report was scanned into [employer] and attached to record. Administered Medications: 04/17 14:19 Drug: NS 0.9% 500 ml [sodium chloride 0.9 % intravenous solution] Route: IV; Rate: kc3 bolus; Site: right antecubital; 14:53 Follow up: IV Status: Completed infusion kc3 14:20 Drug: Ondansetron 4 mg [ondansetron HCl 2 mg/mL intravenous solution (2 mL)] Route: kc3 IVP; Site: right antecubital; 14:21 Drug: Diatrizoate Meglumine & Sodium 10 ml [diatrizoate meglumine and diat.sodium 66 kc3 %-10 % oral solution (10 mL)] Route: PO; 14:52 Drug: Diatrizoate Meglumine & Sodium 10 ml [diatrizoate meglumine and diat.sodium 66 kc3 %-10 % oral solution (10 mL)] Route: PO; 17:08 Drug: Magnesium Citrate 300 ml [magnesium citrate oral solution (300 mL)] Route: PO; [facility] Order Results: Lab Order: Amylase; SPEC'M 04/17/16 14:08 Test: AMYLASE; Value: 35; Range: 25-115; Units: U/L; Status: F Lab Order: Basic Metabolic Profile; SPEC'M 04/17/16 14:08 Test: GLUCOSE, FASTING; Value: 111; Range: 83-110; Abnormal: Above high normal; Units: MG/DL; Status: F Test: BLOOD UREA NITROGEN; Value: 21; Range: 7-18; Abnormal: Above high normal; Units: MG/DL; Status: F Test: CREATININE FOR GFR; Value: 1.30; Range: 0.55-1.02; Abnormal: Above high normal; Units: MG/DL; Status: F Test: GLOMERULAR FILTRATION RATE; Value: 42.4; Range: >39; Status: F Test: SODIUM LEVEL; Value: 136; Range: 136-145; Units: MEQ/L; Status: F Test: POTASSIUM SERUM; Value: 3.4; Range: 3.5-5.1; Abnormal: Below low normal; Units: MEQ/L; Status: F Test: CHLORIDE LEVEL; Value: 102; Range: 98-107; Units: MEQ/L; Status: F Test: CARBON DIOXIDE LEVEL; Value: 22; Range: 21-32; Units: MEQ/L; Status: F Test: ANION GAP; Value: 12; Range: 8-16; Units: MEQ/L; Status: F Test: CALCIUM LEVEL; Value: 8.8; Range: 8.8-10.2; Units: MG/DL; Status: F Test Note: ; Units are mL/min/1.73 m2 Chronic Kidney Disease Staging per NKF: Stage I & II GFR >=60 Normal to Mildly Decreased Stage III GFR 30-59 Moderately Decreased Stage IV GFR 15-29 Severely Decreased Stage V GFR <15 Very Little GFR Left ESRD GFR <15 on DEPARTMENT EDITOR Lab Order: CBC with Diff; SPEC'M 04/17/16 14:08 Test: WHITE BLOOD COUNT; Value: 5.7; Range: 4.0-10.0; Units: K/mm3; Status: F Test: RED BLOOD COUNT; Value: 5.48; Range: 4.00-5.40; Abnormal: Above high normal; Units: M/mm3; Status: F Test: HEMOGLOBIN; Value: 15.6; Range: 12.0-16.0; Units: g/dl; Status: F Test: HEMATOCRIT; Value: 47.7; Range: 36.0-47.0; Abnormal: Above high normal; Units: %; Status: F Test: MEAN CORPUSCULAR VOLUME; Value: 87.0; Range: 80.0-96.0; Units: fl; Status: F Test: MEAN CORPUSCULAR HEMOGLOBIN; Value: 28.5; Range: 27.0-33.0; Units: pg; Status: F Test: MEAN CORPUSCULAR HGB CONC; Value: 32.8; Range: 32.0-36.5; Units: g/dl; Status: F Test: RED CELL DISTRIBUTION WIDTH; Value: 13.4; Range: 11.5-14.5; Units: %; Status: F Test: PLATELET COUNT, AUTOMATED; Value: 194; Range: 150-450; Units: k/mm3; Status: F Test: NEUTROPHILS %; Value: 80.2; Range: 36.0-66.0; Abnormal: Above high normal; Units: %; Status: F Test: LYMPH %; Value: 9.0; Range: 24.0-44.0; Abnormal: Below low normal; Units: %; Status: F Test: MONO %; Value: 3.5; Range: 0.0-5.0; Units: %; Status: F Test: EOS %; Value: 4.6; Range: 0.0-3.0; Abnormal: Above high normal; Units: %; Status: F Test: BASO %; Value: 0.2; Range: 0.0-1.0; Units: %; Status: F Test: LARGE UNSTAINED CELL %; Value: 2.5; Range: 0.0-4.0; Units: %; Status: F Test: NEUTROPHILS #; Value: 4.6; Range: 1.8-7.7; Units: K/mm3; Status: F Test: LYMPH #; Value: 0.5; Range: 1.5-4.5; Abnormal: Below low normal; Units: K/mm3; Status: F Test: MONO #; Value: 0.2; Range: 0.0-0.8; Units: K/mm3; Status: F Test: EOS #; Value: 0.3; Range: 0.0-0.50; Units: K/mm3; Status: F Test: BASO #; Value: 0.0; Range: 0.0-0.2; Units: K/mm3; Status: F Test: LARGE UNSTAINED CELL #; Value: 0.1; Range: 0.0-0.4; Units: K/mm3; Status: F Lab Order: Lipase; SPEC'M 04/17/16 14:08 Test: LIPASE; Value: 111; Range: 73-393; Units: U/L; Status: F Lab Order: Liver Profile; SPEC'M 04/17/16 14:08 Test: AST/SGOT; Value: 115; Range: 15-37; Abnormal: Above high normal; Units: U/L; Status: F Test: ALT/SGPT; Value: 209; Range: 12-78; Abnormal: Above high normal; Units: U/L; Status: F Test: ALKALINE PHOSPHATASE; Value: 295; Range: 45-117; Abnormal: Above high normal; Units: U/L; Status: F Test: BILIRUBIN,TOTAL; Value: 2.7; Range: 0.2-1.0; Abnormal: Above high normal; Units: MG/DL; Status: F Test: BILIRUBIN,DIRECT; Value: 2.1; Range: 0.0-0.2; Abnormal: Above high normal; Units: MG/DL; Status: F Test: TOTAL PROTEIN; Value: 7.8; Range: 6.4-8.2; Units: GM/DL; Status: F Test: ALBUMIN; Value: 3.3; Range: 3.2-5.2; Units: GM/DL; Status: F Test: ALBUMIN/GLOBULIN RATIO; Value: 0.73; Range: 1.00-1.93; Abnormal: Below low normal; Status: F Lab Order: Urinalysis; SPEC'M 04/17/16 13:56 Test: APPEARANCE, URINE; Value: HAZY; Range: CLEAR; Status: F Test: COLOR, URINE; Value: KEISHA; Range: YELLOW; Status: F Test: PH,URINE; Value: 5.0; Range: 5.0-9.0; Units: UNITS; Status: F Test: SPECIFIC GRAVITY URINE AUTO; Value: 1.029; Range: 1.002-1.035; Status: F Test: PROTEIN, URINE AUTO; Value: 1+; Range: NEGATIVE; Abnormal: Above high normal; Units: mg/dL; Status: F Test: GLUCOSE, URINE (UA) AUTO; Value: NEGATIVE; Range: NEGATIVE; Units: mg/dL; Status: F Test: KETONE, URINE AUTO; Value: TRACE; Range: NEGATIVE; Abnormal: Above high normal; Units: mg/dL; Status: F Test: UROBILINOGEN, URINE AUTO; Value: 4.0; Range: 0.0-2.0; Abnormal: Above high normal; Units: mg/dL; Status: F Test: BILIRUBIN, URINE AUTO; Value: 2+; Range: NEGATIVE; Abnormal: Above high normal; Status: F Test: NITRITE, URINE AUTO; Value: NEGATIVE; Range: NEGATIVE; Status: F Test: LEUKOCYTE ESTERASE, URINE AUTO; Value: NEGATIVE; Range: NEGATIVE; Status: F Test: BLOOD, URINE BLOOD; Value: NEGATIVE; Range: NEGATIVE; Status: F Test: WBC, URINE AUTO; Value: 34; Range: 0-3; Abnormal: Above high normal; Units: /HPF; Status: F Test: RBC, URINE AUTO; Value: 0; Range: 0-3; Units: /HPF; Status: F Test: BACTERIA, URINE AUTO; Value: NEGATIVE; Range: NEGATIVE; Status: F Test: SQUAMOUS EPITHELIAL CELL UR AU; Value: 10; Range: 0-6; Units: /HPF; Status: F Test: TRANSITIONAL EPITHELIAL AUTO; Value: 1; Range: NONE; Units: /HPF; Status: F Test: RENAL EPITHELIAL CELLS; Value: 1; Range: NONE; Units: /HPF; Status: F Test: MUCUS, URINE; Value: SMALL; Range: NEGATIVE; Status: F Test: HYALINE CAST, URINE AUTO; Value: 37; Range: 0-1; Units: /LPF; Status: F Test: GRANULAR CAST, URINE AUTO; Value: 8; Range: NONE; Units: /LPF; Status: F Test: CELLULAR CASTS, URINE AUTO; Value: 8; Range: <1; Abnormal: Above high normal; Units: /LPF; Status: F Lab Order: Urine Culture; SPEC'M 04/17/16 13:56 Test: URINE CULTURE; Value: URINE CULTURE RESULT SPECIMEN APPEARS CONTAMINATED; Status: F Radiology Order: CT ABD & PELVIS: IV and Oral Contrast Test: CT ABD & PELVIS: IV and Oral Contrast REASON FOR EXAMINATION: ?OBSTRUCTION;Abd. Pain - Generalized, Nn-focal Exam; CT abdomen and pelvis with IV and oral contrast:; ; History: Question obstruction, abdominal pain. Generalized.; ; Comparison CT study is from 03/27/2016 done at [facility]. This; comparison study was read as showing evidence of mesenteric panniculitis and; prior cholecystectomy and hysterectomy.; ; CT contrast dose: 100 mL of Isovue 370 is administered intravenously.; ; Findings: Digital preliminary surface plate inspector radiograph demonstrates a dextroconvex curve; and clips in the right upper quadrant. Bowel gas pattern is normal. The patient; status post left mastectomy and prosthesis is visible. The lung bases are; essentially clear except for mild bibasilar fibrosis. No pleural effusion is; seen. There is a granulomatous calcification in the dome of the liver unchanged; from the comparison study. No focal liver mass lesion is seen. The spleen is; unremarkable. No adrenal lesion is seen on either side. There is a cyst in the; upper pole of the right kidney measuring 2.8 cm in greatest diameter. No; pancreatic abnormality is observed. Gallbladder surgically absent. The; abdominal aorta is quite tortuous but non-aneurysmal. Atherosclerotic vascular; calcification is seen. No retroperitoneal mass or adenopathy is seen. A normal; appendix is seen against the pelvic side wall. No ovarian abnormality is seen.; Uterus is surgically absent. The urinary bladder is intact. Small and large; intestinal bowel loops are normal in the abdomen and pelvis. There is a very; small sliding-type hiatal hernia. No other abdominal wall defect is seen. Bone; window settings show no bony destructive lesion. There is degenerative disc; changes in the lumbar spine. The small bowel mesenteric changes noted previously; are again seen unchanged.; ; Impression:; ; 1. Small sliding-type hiatal hernia.; ; 2. 2.8 cm right renal cyst.; ; 3. Tortuous abdominal aorta with atherosclerotic changes.; ; 4. Post-cholecystectomy and hysterectomy.; ; 5. No acute intra-abdominal abnormality.; ; 6. The scattered mesenteric lymph nodes, mesenteric lymph node calcifications,; and mild fibrotic changes in the mesenteric fat seen on the previous study are; again noted unchanged.; ; ; Signed by; Regulo Marshall MD 04/17/2016 04:44 P; Outcome: 16:31 Discharge ordered by Provider. dt4 17:08 Discharge Assessment: Patient awake, alert and oriented x 3. No cognitive and/or jmk functional deficits noted. Patient verbalized understanding of disposition instructions. patient administered narcotics - no. The following High Risk Discharge criteria are identified: None. Discharged to home ambulatory. Condition: good. Discharge instructions given to patient, Instructed on discharge instructions, follow up and referral plans. medication usage, Demonstrated understanding of instructions, medications, Pt was receptive of discharge instructions/ teaching. CT Study completed. Property :Personal belongings accompany Pt. 17:11 Patient left the ED. blakek Signatures: Dispatcher [employer] EDMS Jackson Acuna,RN RN Ericka Charles, RN RN [facility] Aracelis Baig, Reg Reg gb Francisca Bernal, Reg Reg lg Yunior Wasserman, RN RN Jovita Gomez, HARNESS INSTALLER HARNESS INSTALLER jb5 Gina Porras, HARNESS INSTALLER HARNESS INSTALLER ct3 Mohini Rodriguez, PA-C PA-C dt4 Khalida Verde,RN RN kc3 Chart Complete MTDD
== END 2016-04-17 17:11 | disposition home or self-care (01) ==
LOC: M ED 12:35
DX: K59.00 Constipation, unspecified (principal); N28.1 Cyst of kidney, acquired; Z85.3 Personal history of malignant neoplasm of breast; Z85.51 Personal history of malignant neoplasm of bladder; E78.00 Pure hypercholesterolemia, unspecified; K21.9 Gastro-esophageal reflux disease without esophagitis; I10 Essential (primary) hypertension; Z86.73 Personal history of transient ischemic attack (TIA), and cerebral infarction without residual deficits; Z87.891 Personal history of nicotine dependence; Z79.899 Other long term (current) drug therapy; Z79.82 Long term (current) use of aspirin; Z88.2 Allergy status to sulfonamides
CPT/HCPCS: 36415; 74177; 80048; 80076; 81001; 82150; 83690; 85025; 87086; 96361; 96374; 99284; G0463; J2405; Q9963; Q9967

== ENCOUNTER → 2016-04-21 | Outpatient (REF) | payer MEDICARE | LOC: M SFHCPLAZ 13:09 | PROVIDERS: ATTEND Physician Assistant Medical | DX: N39.0 Urinary tract infection, site not specified (principal) | CPT/HCPCS: 87088; 87186; G0463 ==

== ENCOUNTER → 2016-04-23 | Outpatient (REF) | payer MEDICARE | LOC: M SMT 12:54 | PROVIDERS: ATTEND Urology | DX: N39.0 Urinary tract infection, site not specified (principal) ==

== ENCOUNTER → 2016-06-08 | Outpatient (REF) | payer MEDICARE | LOC: M SMT 12:59 | PROVIDERS: ATTEND Urology | DX: N39.0 Urinary tract infection, site not specified (principal) ==

== ENCOUNTER → 2016-06-16 | Outpatient (REF) | payer MEDICARE ==
[2016-06-16 15:33] LABS: BASO % 0.4 % (0.0-1.0); EOS # 0.1 K/mm3 (0.0-0.50); EOS % 1.4 % (0.0-3.0); LARGE UNSTAINED CELL # 0.2 K/mm3 (0.0-0.4); LARGE UNSTAINED CELL % 1.8 % (0.0-4.0); LYMPH # 2.9 K/mm3 (1.5-4.5); LYMPH % 31.9 % (24.0-44.0); MEAN CORPUSCULAR HEMOGLOBIN 29.1 pg (27.0-33.0); MEAN CORPUSCULAR HGB CONC 32.5 g/dl (32.0-36.5); MEAN CORPUSCULAR VOLUME 89.7 fl (80.0-96.0); MONO # 0.6 K/mm3 (0.0-0.8); MONO % 6.5 % (0.0-5.0); PLATELET COUNT, AUTOMATED 249 k/mm3 (150-450); RED CELL DISTRIBUTION WIDTH 13.4 % (11.5-14.5); WHITE BLOOD COUNT 8.6 K/mm3 (4.0-10.0)
[2016-06-16 15:55] LABS: ERYTHROCYTE SEDIMENTATION RATE 24 mm/hr (0-30)
[2016-06-16 17:02] LABS: ALBUMIN 3.7 GM/DL (3.2-5.2); ALBUMIN/GLOBULIN RATIO 0.97 (1.00-1.93); BILIRUBIN,TOTAL 0.4 MG/DL (0.2-1.0); CALCIUM LEVEL 9.3 MG/DL (8.8-10.2); CREATININE FOR GFR 1.07 MG/DL (0.55-1.02); GLOMERULAR FILTRATION RATE 53.1 (>39); POTASSIUM SERUM 4.3 MEQ/L (3.5-5.1); TOTAL PROTEIN 7.5 GM/DL (6.4-8.2)
== END ==
LOC: M SFHCPLAZ 14:03
PROVIDERS: ATTEND Physician Assistant Medical
DX: M17.10 Unilateral primary osteoarthritis, unspecified knee (principal); R94.5 Abnormal results of liver function studies

== ENCOUNTER → 2016-06-16 | Outpatient (REF) | payer MEDICARE | LOC: M SMT 15:07 | PROVIDERS: ATTEND Urology | DX: Z85.51 Personal history of malignant neoplasm of bladder (principal) ==

== ENCOUNTER → 2016-06-23 | Outpatient (CLI) | payer MEDICARE ==
--- NOTE | 2016-06-23 10:25 | REP ---
Clinical: Abdominal pain with elevated liver function tests. Technique: Ambrose scale ultrasound using curved array transducer. Findings: The liver and pancreas are normal in contour, size, and echogenicity without focal hepatic or pancreatic lesions identified. The gallbladder is absent and consistent with prior cholecystectomy. No biliary ductal dilatation is appreciated, and the common bile duct measures 7.2 mm diameter. The right kidney is normal in reniform shape without hydronephrosis and measures 10.6 x 4.0 x 4.0 cm with 4.3 cm septated upper pole cyst. No ascites. Visualized portions of the abdominal aorta normal. Impression: Normal liver and pancreas. Status post cholecystectomy without biliary ductal dilatation. 4.3 cm septated upper pole right renal cyst.
== END ==
LOC: M WHC 09:26
PROVIDERS: ATTEND Physician Assistant Medical
DX: R94.5 Abnormal results of liver function studies (principal); N28.1 Cyst of kidney, acquired; Z90.49 Acquired absence of other specified parts of digestive tract
CPT/HCPCS: 76705; 96372; G0463; J3301

== ENCOUNTER → 2016-08-25 | Outpatient (CLI) | payer MEDICARE ==
--- NOTE | 2016-08-25 12:30 | REP ---
Clinical: Left upper extremity pain and edema . Technique: Ambrose scale and color Doppler evaluation using linear high frequency transducer. Findings: Ultrasound examination of the left upper extremity deep venous structures from the jugular, subclavian, axillary, brachial, basilic, and cephalic veins demonstrate normal compressibility flow and wave patterns in response to respiration and augmentation. There is no evidence for deep venous thrombosis. Impression: No evidence for deep venous thrombosis. Signed by Yonathan Bojorquez MD 08/25/2016 12:22 P
== END ==
LOC: M RAD 11:31
PROVIDERS: ATTEND Physician Assistant Medical
DX: R60.0 Localized edema (principal)
CPT/HCPCS: 20610; 93971; G0463

== ENCOUNTER → 2016-09-15 | Outpatient (REF) | payer MEDICARE ==
[~2016-09-15] MED LIST changes: -ECOT325T3 PO; +ECOT325T5 PO; +KEFL500C17 PO; -KEFL500C7 PO; -MAGN250T2 PO; +MAGN250T7 PO
== END ==
LOC: M SMT 13:02
PROVIDERS: ATTEND Urology
DX: Z85.51 Personal history of malignant neoplasm of bladder (principal)

== ENCOUNTER → 2016-12-22 | Outpatient (REF) | payer MEDICARE | LOC: M SMT 17:07 | PROVIDERS: ATTEND Urology | DX: Z85.51 Personal history of malignant neoplasm of bladder (principal) ==

== ENCOUNTER → 2017-06-23 | Outpatient (REF) | payer MEDICARE | LOC: M SMT 17:04 | DX: C67.9 Malignant neoplasm of bladder, unspecified (principal); R82.99 Other abnormal findings in urine | CPT/HCPCS: 88108 ==

== ENCOUNTER → 2017-12-21 | Outpatient (REF) | payer MEDICARE | LOC: M SMT 17:28 | DX: C67.9 Malignant neoplasm of bladder, unspecified (principal) | CPT/HCPCS: 88108 ==

== ENCOUNTER → 2018-08-22 | Outpatient (REF) | payer MEDICARE ==
[~2018-08-22] MED LIST changes: +VITA500T17 PO; -VITA500T53 PO
== END ==
LOC: M SMT 12:46
PROVIDERS: ATTEND Urology
DX: C67.9 Malignant neoplasm of bladder, unspecified (principal)

== ENCOUNTER → 2018-11-25 | Outpatient (REF) | payer MEDICARE ==
[~2018-11-25] MED LIST changes: +ALEN70TA74 PO; +AMLO2.5C4 PO; +APPL300T4 PO; +ATOR40TA75 PO; +B COTAB3 PO; +CRAN450T4 PO; +CVS1CAP56 PO; +EQL50CAP4 PO; +IPRA0.00 INH; -OMEP20CA3 PO; +OMEP20CA4 PO; -OXYB10TA PO; +OXYB10TA2 PO; +QC F0.52 PO; +SHARPOW3 PO; +TREL1AER INH; +VITA50005 PO
== END ==
LOC: M SMT 16:49
PROVIDERS: ATTEND Urology
DX: C67.9 Malignant neoplasm of bladder, unspecified (principal)

== ENCOUNTER 2018-12-21 05:55 | Day surgery (SDC) | payer MEDICARE ==
[~2018-12-21] VITALS: Ht 167.6 cm; Wt 73.5 kg
[2018-12-21] MEDS ORDERED: LR 1,000 ML IV ONE (06:00)
[2018-12-21] MEDS ORDERED: ROCURONIUM BROMIDE 50 MG/5 ML VIAL As Ordered ONE (07:17)
[2018-12-21] MEDS ORDERED: fentaNYL 250 MCG/5 ML INJECTION (J3010) As Ordered ONE (07:17)
[2018-12-21] MEDS ORDERED: LIDOCAINE 2% INJ 100 MG/5 ML SDV (FOR ANES.) As Ordered ONE (07:17)
[2018-12-21] MEDS ORDERED: PROPOFOL 200 MG/20 ML VIAL As Ordered ONE ×2 (07:17→07:22)
[2018-12-21] MEDS ORDERED: MIDAZOLAM INJ 2 MG/2 ML VIAL (J2250) As Ordered ONE (07:19)
[2018-12-21] MEDS ORDERED: PHENYLephrine HCL 500 MCG/5 ML (100MCG/ML) SYRINGE (J2370) As Ordered ONE (08:05)
[2018-12-21] MEDS ORDERED: dexameTHASONE 4 MG/ML 1ML VIAL (J1100) As Ordered ONE (08:05)
[2018-12-21] MEDS ORDERED: ONDANSETRON 4MG/2ML VIAL (J2405) As Ordered ONE (08:05)
[2018-12-21] MEDS ORDERED: KETOROLAC 60 MG/2 ML VIAL (J1885) As Ordered ONE (08:05)
[2018-12-21] MEDS ORDERED: CONRAY-60 60% 50ML VIAL (Q9961) As Ordered ONE (08:15)
[2018-12-21] MEDS ORDERED: ePHEDrine SULFATE 25 MG/5 ML(5MG/ML) SYRINGE As Ordered ONE (08:18)
[2018-12-21] MEDS ORDERED: SUGAMMADEX SODIUM 500 MG/5 ML VIAL (BRIDION) As Ordered ONE (08:24)
[2018-12-21] MEDS ORDERED: HYDROMORPHONE HCL 0.5 MG/ 0.5 ML SYRINGE (J1170 PER 1) IV PRN (09:30)
[2018-12-21] MEDS ORDERED: fentaNYL 100 MCG/2 ML INJECTION (J3010) IV PRN (09:30)
[2018-12-21] MEDS ORDERED: NORCO, ANEXSIA 5/325MG TABLET (HYDROcodone/ACETAMINOPHEN) PO PRN (09:30)
[2018-12-21] MEDS ORDERED: ONDANSETRON 4MG/2ML VIAL (J2405) IV PRN (09:30)
[2018-12-21] MEDS ORDERED: LR 1,000 ML IV SCH (09:30)
--- NOTE | 2018-12-21 09:39 | REP ---
To very pyelogram: A series of three intraoperative fluoroscopic views are performed during right ureteral stent placement. The final film demonstrates the proximal and distal stent pigtails to be in satisfactory locations. There is lumbar scoliosis convex right. There are surgical clips in the abdominal right upper quadrant. Fluoroscopic exposure time is 0.1 seconds. The fluoroscopic images are performed with last image hold technology and require no additional radiation. Electronically Signed by Tru Sims MD 12/21/2018 09:30 A
[2018-12-21 10:10] VITALS: BP 135/57
[2018-12-21] MEDS ORDERED: ACETAMINOPHEN TAB 650MG DOSE (2X325MG) PO PRN (10:31)
--- NOTE | 2018-12-21 20:18 | RO ---
DATE OF PROCEDURE: 12/21/2018 PREPROCEDURE DIAGNOSIS: Bladder cancer. POSTPROCEDURE DIAGNOSIS: Bladder cancer. PROCEDURE: Cystoscopy, transurethral resection of bladder tumor (between 2 and 5 cm), right retrograde pyelogram with intraoperative interpretation of images, right ureteral stent placement. SURGEON: Dr. Brent Armando CLOUD SOFTWARE ENGINEER: None. ANESTHESIA: General. OPERATIVE INDICATIONS: This is a 78-year-old female with a history of high-grade bladder cancer, which has been treated with BCG in the office. On recent office cystoscopy, she was found to have what looked like a recurrence of cancer on the right wall. Biopsies of this area were obtained and were positive for high-grade urothelial carcinoma. She was brought back to the operating room today to formally resect this area. DESCRIPTION OF PROCEDURE: The patient was brought to the operating room and general anesthesia was induced. Prophylactic antibiotics were infused. She was then placed in the dorsal lithotomy position and prepped and draped in the usual sterile fashion. At this point, a resectoscope was inserted into the urethral meatus using the visual obturator. The bladder was then thoroughly examined, and the only abnormalities seen were what appeared to be a patch of papillary tumors on the right wall just lateral to the ureteral orifice and also growing on top of the right ureteral orifice. At this point, I resected this patch using a bipolar loop and all the specimen was removed from the bladder. I then cauterized the area of resection. Of note, since I had to resect over the right ureteral orifice, the decision was made to place a stent. At this point, I advanced a guidewire up the right collecting system and then advanced a 5-Cypriot open-ended ureteral catheter over the wire. The wire was removed, and then a retrograde pyelogram was performed. It was notable for mild right hydronephrosis, with no extravasation. There were no filling defects. I then advanced the wire back up the right collecting system and then removed the ureteral catheter. I then utilized the wire to advance a 7-Cypriot x 22-32 cm JJ ureteral stent up into the right collecting system. The wire was removed, and there were adequate curls of the stent in the right renal pelvis and in the bladder. After the stent was placed, I checked for hemostasis again and any areas of bleeding in the resection bed were cauterized using the coagulation current. Once satisfied with hemostasis, the resectoscope was removed and an #18-Cypriot De La Vega catheter was inserted into the bladder. The balloon was filled with 10 mL of sterile water, and the catheter was connected to gravity drainage. This marked the conclusion of the procedure. The patient was then taken out of the dorsal lithotomy position, awakened from anesthesia and transported to the recovery room in stable condition. Estimated blood loss: 5 mL. Complications: None. Specimens: Bladder tumors. PLAN: The patient will followup in clinic next week for catheter removal and pathology results. I will likely leave her stent in for 3-4 weeks. Given her previous difficulty tolerating BCG I likely will not recommend doing any additional BCG at this point. SCOTT
== END 2018-12-21 10:14 | disposition home or self-care (01) ==
LOC: M SDC 05:55
PROVIDERS: ATTEND Urology
DX: D09.0 Carcinoma in situ of bladder (principal); I10 Essential (primary) hypertension; E78.5 Hyperlipidemia, unspecified; K21.9 Gastro-esophageal reflux disease without esophagitis; Z86.73 Personal history of transient ischemic attack (TIA), and cerebral infarction without residual deficits; Z85.3 Personal history of malignant neoplasm of breast; Z92.21 Personal history of antineoplastic chemotherapy; F17.210 Nicotine dependence, cigarettes, uncomplicated; Z88.2 Allergy status to sulfonamides; Z79.899 Other long term (current) drug therapy; Z85.51 Personal history of malignant neoplasm of bladder
CPT/HCPCS: 52235; 52332; 74420; 88305; C1769; C2617; J0690; J1100; J1885; J2250; J2370; J2405; J3010; Q9961

== ENCOUNTER → 2019-01-16 | Outpatient (CLI) | payer MEDICARE ==
[~2019-01-16] MED LIST changes: +ISOVUE-370 76% 100ML VIAL (Q9967) As Ordered ONE
--- NOTE | 2019-01-16 16:38 | REP ---
CT urography: CT abdomen and pelvis without and with IV contrast. History: Bladder carcinoma. Comparison CT study April 17, 2016. CT contrast dose: 100 ml of intravenous Isovue 370. CT findings: Digital preliminary slope hoist operator radiograph demonstrates a normal bowel gas pattern. There appear to be radiopaque bilateral breast prosthesis sees. Axial CT images demonstrate the plate-like atelectasis in the right middle lobe. No pleural effusion is seen. The liver and the spleen are normal in size homogeneous in texture. No abnormalities noted in the pancreas. Gallbladder is surgically absent. No adrenal lesion is seen on either side. There is a simple 4.3 by 4.4 by 3.5 cm cyst in the upper pole of the right kidney. This it is slightly larger and otherwise unchanged. No intrarenal calculus is observed. There is no evidence of renal mass lesion. There is a infrarenal abdominal aortic aneurysm measuring 2.8 cm in greatest diameter. There is left colonic diverticulosis. No retroperitoneal mass or adenopathy is seen. There is mild diffuse bladder wall thickening enhancement on the initial postcontrast images. Delayed postcontrast images demonstrate some bladder deformity anteriorly. No intraluminal bladder mass effect is appreciated. There is mild dilation of the renal pelvis and proximal ureter on the right with thickening and enhancement of the ureteral and pelvic lining on the right side consistent with chronic inflammation. No extra ureteral or ureteral mass lesion is observed. No ureteral calculus is seen. This was not previously observed. This may reflect mild pyelitis. There is an indentation of the renal pelvis on the left from an adjacent blood vessel. No filling defect. There are phleboliths in the pelvis. No abdominal wall defect is seen. No bony destructive lesion is appreciated. Impression: Number one 4.4 cm right renal cyst. 2. Thickening and enhancement of the lining of the renal pelvis and mildly dilated right proximal ureter question of pyelitis. No obstructive lesion is observed. 3. Diffuse bladder wall thickening and enhancement. Some deformity of the filled bladder anteriorly. No mass lesion is appreciated. No evidence of ureteral obstruction. Electronically Signed by Regulo Marshall MD 01/16/2019 04:29 P
== END ==
LOC: M RAD 14:03
PROVIDERS: ATTEND Urology
DX: C67.9 Malignant neoplasm of bladder, unspecified (principal); N28.1 Cyst of kidney, acquired
CPT/HCPCS: 74178; Q9967

== ENCOUNTER → 2019-02-28 | Outpatient (REF) | payer MEDICARE ==
[~2019-02-28] MED LIST changes: -ISOVUE-370 76% 100ML VIAL (Q9967) As Ordered ONE; -SIMV10TA2 PO; +SIMV10TA21 PO
[2019-02-28 14:37] LABS: APPEARANCE, URINE CLEAR (CLEAR); BACTERIA, URINE AUTO NEGATIVE (NEGATIVE); BILIRUBIN, URINE AUTO NEGATIVE (NEGATIVE); BLOOD, URINE BLOOD 1+ (NEGATIVE); COLOR, URINE YELLOW (YELLOW); GLUCOSE, URINE (UA) AUTO NEGATIVE (NEGATIVE); KETONE, URINE AUTO NEGATIVE (NEGATIVE); LEUKOCYTE ESTERASE, URINE AUTO NEGATIVE (NEGATIVE); MUCUS, URINE SMALL (NEGATIVE); NITRITE, URINE AUTO NEGATIVE (NEGATIVE); PROTEIN, URINE AUTO NEGATIVE (NEGATIVE); RBC, URINE AUTO 0 /HPF (0-3); SPECIFIC GRAVITY URINE AUTO 1.016 (1.002-1.035); SQUAMOUS EPITHELIAL CELL UR AU 1 /HPF (0-6); UROBILINOGEN, URINE AUTO 0.2 mg/dL (0.0-2.0); WBC, URINE AUTO 1 /HPF (0-3)
== END ==
LOC: M SMT 13:05
PROVIDERS: ATTEND Nurse Practitioner Family
DX: C67.9 Malignant neoplasm of bladder, unspecified (principal)

== ENCOUNTER → 2019-03-23 | Outpatient (REF) | payer MEDICARE ==
[~2019-03-23] MED LIST changes: +OMEP-172 PO; -OMEP20CA4 PO
[2019-03-23 16:57] LABS: APPEARANCE, URINE HAZY (CLEAR); BACTERIA, URINE AUTO NEGATIVE (NEGATIVE); BILIRUBIN, URINE AUTO NEGATIVE (NEGATIVE); BLOOD, URINE BLOOD 1+ (NEGATIVE); COLOR, URINE YELLOW (YELLOW); GLUCOSE, URINE (UA) AUTO NEGATIVE (NEGATIVE); KETONE, URINE AUTO NEGATIVE (NEGATIVE); LEUKOCYTE ESTERASE, URINE AUTO NEGATIVE (NEGATIVE); NITRITE, URINE AUTO NEGATIVE (NEGATIVE); PROTEIN, URINE AUTO NEGATIVE (NEGATIVE); RBC, URINE AUTO 1 /HPF (0-3); SQUAMOUS EPITHELIAL CELL UR AU 3 /HPF (0-6); UROBILINOGEN, URINE AUTO 0.2 mg/dL (0.0-2.0); WBC, URINE AUTO 5 /HPF (0-3)
== END ==
LOC: M SMT 16:39
PROVIDERS: ATTEND Nurse Practitioner Family
DX: C67.9 Malignant neoplasm of bladder, unspecified (principal)

== ENCOUNTER → 2019-04-04 | Outpatient (REF) | payer MEDICARE ==
[2019-04-04 17:45] LABS: APPEARANCE, URINE CLOUDY (CLEAR); BACTERIA, URINE AUTO NEGATIVE (NEGATIVE); BILIRUBIN, URINE AUTO NEGATIVE (NEGATIVE); BLOOD, URINE BLOOD 1+ (NEGATIVE); COLOR, URINE YELLOW (YELLOW); GLUCOSE, URINE (UA) AUTO NEGATIVE (NEGATIVE); KETONE, URINE AUTO NEGATIVE (NEGATIVE); LEUKOCYTE ESTERASE, URINE AUTO 1+ (NEGATIVE); NITRITE, URINE AUTO NEGATIVE (NEGATIVE); PROTEIN, URINE AUTO NEGATIVE (NEGATIVE); RBC, URINE AUTO 5 /HPF (0-3); SPECIFIC GRAVITY URINE AUTO 1.015 (1.002-1.035); SQUAMOUS EPITHELIAL CELL UR AU 10 /HPF (0-6); UROBILINOGEN, URINE AUTO 0.2 mg/dL (0.0-2.0); WBC, URINE AUTO 12 /HPF (0-3)
== END ==
LOC: M SMT 15:30
PROVIDERS: ATTEND Nurse Practitioner Family
DX: C67.9 Malignant neoplasm of bladder, unspecified (principal)

== ENCOUNTER → 2019-04-12 | Outpatient (REF) | payer MEDICARE ==
[2019-04-12 18:04] LABS: APPEARANCE, URINE CLEAR (CLEAR); BACTERIA, URINE AUTO NEGATIVE (NEGATIVE); BILIRUBIN, URINE AUTO NEGATIVE (NEGATIVE); BLOOD, URINE BLOOD NEGATIVE (NEGATIVE); COLOR, URINE YELLOW (YELLOW); GLUCOSE, URINE (UA) AUTO NEGATIVE (NEGATIVE); KETONE, URINE AUTO NEGATIVE (NEGATIVE); LEUKOCYTE ESTERASE, URINE AUTO TRACE (NEGATIVE); NITRITE, URINE AUTO NEGATIVE (NEGATIVE); PROTEIN, URINE AUTO NEGATIVE (NEGATIVE); RBC, URINE AUTO 0 /HPF (0-3); SPECIFIC GRAVITY URINE AUTO 1.015 (1.002-1.035); SQUAMOUS EPITHELIAL CELL UR AU 4 /HPF (0-6); UROBILINOGEN, URINE AUTO 0.2 mg/dL (0.0-2.0); WBC, URINE AUTO 2 /HPF (0-3)
== END ==
LOC: M SMT 16:50
PROVIDERS: ATTEND Nurse Practitioner Women's Health
DX: C67.9 Malignant neoplasm of bladder, unspecified (principal)

== ENCOUNTER → 2019-04-19 | Outpatient (REF) | payer OTHER ==
[~2019-04-19] MED LIST changes: -OMEP-172 PO; +OMEP1CAP73 PO; -OXYB10TA2 PO; +OXYB10TA23 PO
[2019-04-19 17:33] LABS: APPEARANCE, URINE HAZY (CLEAR); BACTERIA, URINE AUTO NEGATIVE (NEGATIVE); BILIRUBIN, URINE AUTO NEGATIVE (NEGATIVE); BLOOD, URINE BLOOD NEGATIVE (NEGATIVE); COLOR, URINE YELLOW (YELLOW); GLUCOSE, URINE (UA) AUTO NEGATIVE (NEGATIVE); KETONE, URINE AUTO NEGATIVE (NEGATIVE); LEUKOCYTE ESTERASE, URINE AUTO TRACE (NEGATIVE); NITRITE, URINE AUTO NEGATIVE (NEGATIVE); PROTEIN, URINE AUTO NEGATIVE (NEGATIVE); RBC, URINE AUTO 0 /HPF (0-3); SPECIFIC GRAVITY URINE AUTO 1.014 (1.002-1.035); SQUAMOUS EPITHELIAL CELL UR AU 2 /HPF (0-6); UROBILINOGEN, URINE AUTO 0.2 mg/dL (0.0-2.0); WBC, URINE AUTO 8 /HPF (0-3)
== END ==
LOC: M SMT 17:00
PROVIDERS: ATTEND Nurse Practitioner Women's Health
DX: C67.9 Malignant neoplasm of bladder, unspecified (principal)

== ENCOUNTER → 2019-06-19 | Outpatient (REF) | payer OTHER | LOC: M SMT 17:12 | PROVIDERS: ATTEND Urology | DX: C67.9 Malignant neoplasm of bladder, unspecified (principal) ==

== ENCOUNTER → 2019-09-29 | Outpatient (REF) | payer OTHER | LOC: M SMT 16:48 | PROVIDERS: ATTEND Urology | DX: C67.9 Malignant neoplasm of bladder, unspecified (principal) ==

== ENCOUNTER → 2020-01-08 | Outpatient (REF) | payer OTHER ==
[~2020-01-08] MED LIST changes: +CALC-212 PO; -CALC600T7 PO
== END ==
LOC: M SMT 12:48
PROVIDERS: ATTEND Urology
DX: C67.9 Malignant neoplasm of bladder, unspecified (principal)

== ENCOUNTER → 2020-04-15 | Outpatient (REF) | payer OTHER ==
[~2020-04-15] MED LIST changes: -ALEN70TA74 PO; +ALEN70TA82 PO
== END ==
LOC: M SMT 13:30
PROVIDERS: ATTEND Urology
DX: C67.9 Malignant neoplasm of bladder, unspecified (principal)

== ENCOUNTER → 2020-10-14 | Outpatient (REF) | payer OTHER | LOC: M SMT 13:18 | PROVIDERS: ATTEND Urology | DX: C67.9 Malignant neoplasm of bladder, unspecified (principal) ==

== ENCOUNTER → 2020-10-28 | Outpatient (CLI) | payer OTHER ==
[~2020-10-28] MED LIST changes: +ISOVUE-370 76% 100ML VIAL ONE
--- NOTE | 2020-10-28 11:18 | REP ---
INDICATION: BLADDER CA. CT urography protocol. The patient also gives a history of previous left breast carcinoma. She is status post cholecystectomy and hysterectomy. COMPARISON: Comparison CT study January 16, 2019. April 17, 2016 study is also reviewed.. TECHNIQUE: Contrast dose: 75 ML of Isovue [address] technique: Helical scanning is acquired and overlapping 1.5 mm and contiguous 3 mm axial images are reformatted. In addition, maximum intensity projection and multiplanar re-formation images are generated in sagittal and coronal imaging projections. 3D surface rendered images are provided as well. FINDINGS: The preliminary digital unit clerk radiograph demonstrates a normal bowel gas pattern. There are clips in right upper quadrant of the abdomen. A dextroconvex lumbar scoliotic curve is seen. The lung bases are clear on axial CT images. There is a moderate size sliding-type hiatal hernia. This was present previously. The liver and the spleen are normal in size and homogeneous in texture. There clips in the gallbladder fossa. No abnormality is noted in the pancreas. Normal adrenal glands are observed bilaterally. There is a 4.7 cm cyst at the upper pole the right kidney. This was present previously. On January 16, 2019 it measured 4.4 cm. No renal mass is observed. No intrarenal calculus is seen. Kidneys enhance symmetrically. Delayed scan acquisition shows no evidence of intra renal collecting system filling defect. The ureters are unremarkable in course and caliber. No bladder mass lesion is observed on postcontrast or delayed images. There is no evidence of pelvic mass or adenopathy. No retroperitoneal adenopathy is observed. There is left colonic diverticulosis without CT evidence of diverticulitis. Calcified mesenteric lymph nodes are noted in the central abdomen. There is a small infrarenal abdominal aortic aneurysm measuring 2.8 cm in greatest AP dimension unchanged. No abdominal wall defect or bony destructive lesion is seen. IMPRESSION: There is no evidence of mass or adenopathy. A 4.7 cm cyst is seen in the right kidney. Hiatal hernia is noted. <Electronically signed by Vaibhav Marshall > 10/28/20 [id number]
== END ==
LOC: M PLAIMG 09:33
PROVIDERS: ATTEND Urology
DX: C67.9 Malignant neoplasm of bladder, unspecified (principal); Z85.3 Personal history of malignant neoplasm of breast; Z90.49 Acquired absence of other specified parts of digestive tract; Z90.710 Acquired absence of both cervix and uterus; N28.1 Cyst of kidney, acquired; K44.9 Diaphragmatic hernia without obstruction or gangrene
CPT/HCPCS: 74178; Q9967

== ENCOUNTER → 2021-01-20 | Outpatient (REF) | payer OTHER ==
[~2021-01-20] MED LIST changes: -ISOVUE-370 76% 100ML VIAL ONE
== END ==
LOC: M SMT 18:43
PROVIDERS: ATTEND Urology
DX: C67.9 Malignant neoplasm of bladder, unspecified (principal)
CPT/HCPCS: 52000; 88108; G0463

== ENCOUNTER → 2021-04-21 | Outpatient (REF) | payer OTHER ==
[~2021-04-21] MED LIST changes: -AMLO2.5C4 PO; +AMLO2.5C6 PO
== END ==
LOC: M SMT 12:55
PROVIDERS: ATTEND Urology
DX: C67.9 Malignant neoplasm of bladder, unspecified (principal)

== ENCOUNTER → 2021-11-24 | Outpatient (REF) | payer OTHER | LOC: M SMT 12:50 | PROVIDERS: ATTEND Urology | DX: C67.9 Malignant neoplasm of bladder, unspecified (principal) ==

== ENCOUNTER → 2022-02-12 | Outpatient (CLI) | payer OTHER | LOC: M RAD 13:58 | PROVIDERS: ATTEND Physician Assistant | DX: M79.604 Pain in right leg (principal); M79.605 Pain in left leg; I70.203 Unspecified atherosclerosis of native arteries of extremities, bilateral legs ==

== ENCOUNTER → 2022-06-15 | Outpatient (REF) | payer MEDICARE, OTHER ==
[~2022-06-15] MED LIST changes: +BAYE81TA10 PO; +CALC1TAB26 PO; +CLOP75TA99 PO; +DIPH-329 PO; +DRIS50003 PO; -EQL50CAP4 PO; +NEUR100C PO; +STOO100C25 PO; +TOPR25TA PO; +VITMTA PO
== END ==
LOC: M SMT 17:15
PROVIDERS: ATTEND Urology
DX: Z01.818 Encounter for other preprocedural examination (principal); C67.9 Malignant neoplasm of bladder, unspecified; N39.0 Urinary tract infection, site not specified; N39.41 Urge incontinence; F17.210 Nicotine dependence, cigarettes, uncomplicated; Z88.2 Allergy status to sulfonamides; Z91.040 Latex allergy status
CPT/HCPCS: 52000; 88108; G0463

== ENCOUNTER 2022-06-22 06:24 | Day surgery (SDC) | payer MEDICARE ==
[~2022-06-22] VITALS: Ht 167.6 cm; Wt 77.6 kg
[~2022-06-22 06:24] MED LIST changes: +CYCLOPENTOLATE 1% OPHTH SOLN 2ML BTL OS SCH; +FLURBIPROFEN 0.03% OPHTH SOLN 2.5 ML OS SCH; +PHENYLEPHRINE 2.5% OPHTH SOL 2ML OS SCH; +TETRACAINE 0.5% OPHTH SOLN 4ML OS SCH
[2022-06-22] MEDS ORDERED: LIDOCAINE 1% SDV 5ML VIAL As Ordered ONE (06:32)
[2022-06-22] MEDS ORDERED: LR 1,000 ML IV SCH (07:00)
[2022-06-22] MEDS ORDERED: fentaNYL 100 MCG/2 ML INJECTION As Ordered ONE (07:43)
[2022-06-22] MEDS ORDERED: MIDAZOLAM INJ 2MG/2ML VIAL As Ordered ONE (07:43)
[2022-06-22 08:00] VITALS: BP 162/79
== END 2022-06-22 08:20 | disposition home or self-care (01) ==
LOC: M SDC 06:24
PROVIDERS: ATTEND Ophthalmology
DX: H25.12 Age-related nuclear cataract, left eye (principal); I10 Essential (primary) hypertension; E78.5 Hyperlipidemia, unspecified; K21.9 Gastro-esophageal reflux disease without esophagitis; M81.0 Age-related osteoporosis without current pathological fracture; Z86.73 Personal history of transient ischemic attack (TIA), and cerebral infarction without residual deficits; J44.9 Chronic obstructive pulmonary disease, unspecified; Z79.02 Long term (current) use of antithrombotics/antiplatelets; Z79.899 Other long term (current) drug therapy; F17.210 Nicotine dependence, cigarettes, uncomplicated; Z88.2 Allergy status to sulfonamides
CPT/HCPCS: 66984; J2250; J3010; V2632

== ENCOUNTER 2022-07-08 06:55 | Day surgery (SDC) | payer MEDICARE ==
[~2022-07-08] VITALS: Ht 167.6 cm; Wt 75.9 kg
[~2022-07-08 06:55] MED LIST changes: +CLOP75TA2 PO; -CYCLOPENTOLATE 1% OPHTH SOLN 2ML BTL OS SCH; -FLURBIPROFEN 0.03% OPHTH SOLN 2.5 ML OS SCH; +OMEP-173 PO; -PHENYLEPHRINE 2.5% OPHTH SOL 2ML OS SCH; -TETRACAINE 0.5% OPHTH SOLN 4ML OS SCH; +ceFAZolin SOD 2 GM in IV 1 EA IV ONE
[2022-07-08] MEDS ORDERED: propofoL 200 MG/20 ML VIAL As Ordered ONE ×2 (07:02→07:04)
[2022-07-08] MEDS ORDERED: LIDOCAINE 2% 100MG/5ML SDV (FOR ANES.) As Ordered ONE (07:02)
[2022-07-08] MEDS ORDERED: ONDANSETRON 4MG 2ML VIAL As Ordered ONE (07:03)
[2022-07-08] MEDS ORDERED: ROCURONIUM BROMIDE 50MG/5ML VIAL As Ordered ONE (07:03)
[2022-07-08] MEDS ORDERED: SUGAMMADEX SODIUM 500 MG/5 ML VIAL (BRIDION) As Ordered ONE (07:05)
[2022-07-08] MEDS ORDERED: fentaNYL 100 MCG/2 ML INJECTION As Ordered ONE (07:09)
[2022-07-08] MEDS ORDERED: ACETAMINOPHEN 1000MG 100ML IV BAG As Ordered ONE (08:51)
[2022-07-08] MEDS ORDERED: fentaNYL 100 MCG/2 ML INJECTION IV PRN (09:25)
[2022-07-08] MEDS ORDERED: LR 1,000 ML IV SCH (09:25)
[2022-07-08] MEDS ORDERED: ONDANSETRON 4MG 2ML VIAL IV PRN (09:25)
[2022-07-08] MEDS ORDERED: MORPHINE 2 MG/ML 1ML VIAL IV PRN (09:25)
[2022-07-08] MEDS ORDERED: ACETAMINOPHEN TAB 650MG DOSE (2X325MG) PO PRN (09:30)
[2022-07-08 10:40] VITALS: BP 147/72
== END 2022-07-08 10:45 | disposition home or self-care (01) ==
LOC: M SDC 06:55
PROVIDERS: ATTEND Urology
DX: D09.0 Carcinoma in situ of bladder (principal); I10 Essential (primary) hypertension; E78.5 Hyperlipidemia, unspecified; K21.9 Gastro-esophageal reflux disease without esophagitis; M81.0 Age-related osteoporosis without current pathological fracture; Z85.3 Personal history of malignant neoplasm of breast; Z85.51 Personal history of malignant neoplasm of bladder; Z92.21 Personal history of antineoplastic chemotherapy; Z86.73 Personal history of transient ischemic attack (TIA), and cerebral infarction without residual deficits; Z79.02 Long term (current) use of antithrombotics/antiplatelets; Z79.899 Other long term (current) drug therapy; Z88.2 Allergy status to sulfonamides; F17.210 Nicotine dependence, cigarettes, uncomplicated
CPT/HCPCS: 52234; 88305; J0131; J1100; J2405; J3010

== ENCOUNTER 2022-08-02 21:40 | Inpatient (IN) | payer MEDICARE ==
[~2022-08-02] VITALS: Ht 167.6 cm; Wt 82.6 kg
[~2022-08-02 21:40] MED LIST changes: -ceFAZolin SOD 2 GM in IV 1 EA IV ONE
[2022-08-03] VITALS (32 sets, daily range): BP systolic 74–151; BP diastolic 40–92
[2022-08-03] MEDS ORDERED: NS 1,000 ML IV SCH (01:00)
[2022-08-03] MEDS: MORPHINE 2 MG/ML 1ML VIAL IV PRN (01:35)
[2022-08-03] MEDS ORDERED: GABA-1171 PO (01:45)
[2022-08-03] MEDS ORDERED: SENN1TAB41 PO (01:45)
[2022-08-03] MEDS ORDERED: HOME MED LIST COMPLETE! XX SCH (01:50)
[2022-08-03 02:13] LABS: HEMATOCRIT 40.3 % (36.0-47.0); HEMOGLOBIN 12.9 g/dl (12.0-15.5); MEAN CORPUSCULAR HEMOGLOBIN 28.4 pg (27.0-33.0); MEAN CORPUSCULAR VOLUME 88.8 fl (80.0-96.0); PLATELET COUNT, AUTOMATED 288 10^3/uL (150-450); RED BLOOD COUNT 4.54 10^6/uL (4.00-5.40); WHITE BLOOD COUNT 18.5 10^3/uL (4.0-10.0)
[2022-08-03 02:30] LABS: INR 0.98; PROTHROMBIN TIME 13.2 SECONDS (12.5-14.5)
[2022-08-03 02:31] LABS: PARTIAL THROMBOPLASTIN TIME 28.3 SECONDS (24.8-34.2)
[2022-08-03 02:39] LABS: CALCIUM LEVEL 7.9 MG/DL (8.3-10.6); CREATININE FOR GFR 1.43 MG/DL (0.55-1.30); GLOMERULAR FILTRATION RATE 37.4 (>32); POTASSIUM SERUM 3.3 MMOL/L (3.5-5.1)
[2022-08-03] MEDS ORDERED: POTASSIUM CHLORIDE 10MEQ SR TABLET PO ONE (03:25)
[2022-08-03] MEDS ORDERED: cefTRIAXone SOD 1 GM in D5W MINI-BAG PLUS 50 ML IV SCH (04:00)
[2022-08-03] MEDS: INSULIN LISPRO (NovoLOG) PER UNIT SC SCH ×3 (06:00→18:00)
[2022-08-03] MEDS ORDERED: NS 250 ML IV ONE (06:10)
[2022-08-03] MEDS ORDERED: GLUCAGON INJ 1MG VIAL SC PRN (06:10)
[2022-08-03] MEDS ORDERED: DEXTROSE 50% 50ML SYRINGE IV PRN (06:10)
[2022-08-03] MEDS ORDERED: GLUCOSE 4GM CHEW TABLET PO PRN (06:10)
[2022-08-03 06:36] LABS: BASO # 0.1 10^3/uL (0.0-0.2); BASO % 0.3 % (0.0-1.0); HEMATOCRIT 37.3 % (36.0-47.0); HEMOGLOBIN 11.8 g/dl (12.0-15.5); LYMPH # 0.8 10^3/uL (1.5-5.0); LYMPH % 2.6 % (24.0-44.0); MEAN CORPUSCULAR HEMOGLOBIN 28.2 pg (27.0-33.0); MEAN CORPUSCULAR HGB CONC 31.6 g/dl (32.0-36.5); MEAN CORPUSCULAR VOLUME 89.2 fl (80.0-96.0); MONO # 1.5 10^3/uL (0.0-0.8); MONO % 4.7 % (2.0-8.0); NEUTROPHILS # 27.9 10^3/uL (1.5-8.5); NEUTROPHILS % 90.7 % (36.0-66.0); PLATELET COUNT, AUTOMATED 267 10^3/uL (150-450); RED BLOOD COUNT 4.18 10^6/uL (4.00-5.40)
[2022-08-03 06:39] LABS: WHITE BLOOD COUNT 30.8 10^3/uL (4.0-10.0)
[2022-08-03 06:49] LABS: CALCIUM LEVEL 7.7 MG/DL (8.3-10.6); CREATININE FOR GFR 1.74 MG/DL (0.55-1.30); GLOMERULAR FILTRATION RATE 29.8 (>32); POTASSIUM SERUM 3.6 MMOL/L (3.5-5.1)
[2022-08-03] MEDS ORDERED: GABAPENTIN 100 MG CAP PO SCH ×2 (09:00→21:00)
[2022-08-03] MEDS ORDERED: ACETAMINOPHEN 1000MG 100ML IV BAG IV ONE ×2 (09:50→10:10)
[2022-08-03] MEDS ORDERED: NS 1,000 ML IV ONE ×4 (09:50→16:00)
[2022-08-03] MEDS: LACTOBACILLUS ACIDOPHILUS CAP (BACID) PO SCH ×2 (10:41→18:00)
[2022-08-03] MEDS: PIPERACILLIN/TAZOBACTAM SOD 2.25 GM in D5W MINI-BAG PLUS 50 ML IV SCH ×4 (10:56→21:19)
[2022-08-03] MEDS: D5W 1,000 ML IV SCH ×2 (10:56→12:00)
[2022-08-03] MEDS ORDERED: MIDODRINE 5 MG TAB PO SCH (12:00)
[2022-08-03 12:02] LABS: HEMATOCRIT 34.3 % (36.0-47.0); HEMOGLOBIN 10.7 g/dl (12.0-15.5)
[2022-08-03 12:38] LABS: ERYTHROCYTE SEDIMENTATION RATE 46 mm/hr (0-30)
[2022-08-03] MEDS ORDERED: VANCOMYCIN HCL 1,000 MG, VIAL MATE ADAPTER 1 EACH in NS 250 ML IV SCH (15:15)
[2022-08-03] MEDS: NOREPINEPHRINE 4MG IN D5 250ML 4 MG in IV 1 EA IV SCH ×2 (16:20)
[2022-08-03] MEDS: VASOPRESSIN INJ 20 UNITS in NS 499 ML IV SCH (16:58)
[2022-08-03] MEDS ORDERED: VANCOMYCIN HCL 750 MG, VIAL MATE ADAPTER 1 EACH in D5W 250 ML IV ONE ×2 (17:00→18:00)
[2022-08-03 17:21] LABS: BASO # 0.1 10^3/uL (0.0-0.2); BASO % 0.2 % (0.0-1.0); HEMATOCRIT 31.7 % (36.0-47.0); HEMOGLOBIN 9.9 g/dl (12.0-15.5); LYMPH # 2.4 10^3/uL (1.5-5.0); LYMPH % 7.5 % (24.0-44.0); MEAN CORPUSCULAR HEMOGLOBIN 28.2 pg (27.0-33.0); MEAN CORPUSCULAR HGB CONC 31.2 g/dl (32.0-36.5); MEAN CORPUSCULAR VOLUME 90.3 fl (80.0-96.0); MONO % 7.9 % (2.0-8.0); NEUTROPHILS # 26.4 10^3/uL (1.5-8.5); NEUTROPHILS % 82.2 % (36.0-66.0); PLATELET COUNT, AUTOMATED 240 10^3/uL (150-450); RED BLOOD COUNT 3.51 10^6/uL (4.00-5.40)
[2022-08-03 17:36] LABS: MONO # 2.5 10^3/uL (0.0-0.8); WHITE BLOOD COUNT 32.2 10^3/uL (4.0-10.0)
[2022-08-03 17:44] LABS: ALBUMIN 1.9 G/DL (3.2-5.2); BILIRUBIN,TOTAL 0.4 MG/DL (0.3-1.2); CALCIUM LEVEL 6.5 MG/DL (8.3-10.6); CREATININE FOR GFR 1.8 MG/DL (0.55-1.30); GLOMERULAR FILTRATION RATE 28.7 (>32); MAGNESIUM LEVEL 1.4 MG/DL (1.8-2.4); POTASSIUM SERUM 3.8 MMOL/L (3.5-5.1); TOTAL PROTEIN 4.8 G/DL (5.7-8.2)
[2022-08-03 18:42] LABS: HEMATOCRIT 31.6 % (36.0-47.0); HEMOGLOBIN 9.8 g/dl (12.0-15.5)
[2022-08-03] MEDS ORDERED: METOPROLOL SUCC *XL* 25MG TAB (TopROL *XL*) PO SCH (21:00)
[2022-08-03] MEDS: ATORVASTATIN 20 MG TAB PO SCH (21:20)
[2022-08-03] MEDS: ACETAMINOPHEN TAB 650MG DOSE (2X325MG) PO PRN (21:20)
[2022-08-04] VITALS (44 sets, daily range): BP systolic 86–151; BP diastolic 48–85
[2022-08-04] MEDS: VASOPRESSIN INJ 20 UNITS in NS 499 ML IV SCH (01:55)
[2022-08-04] MEDS: NOREPINEPHRINE 4MG IN D5 250ML 4 MG in IV 1 EA IV SCH ×4 (03:20→05:20)
[2022-08-04] MEDS: PIPERACILLIN/TAZOBACTAM SOD 2.25 GM in D5W MINI-BAG PLUS 50 ML IV SCH ×2 (04:29→10:03)
[2022-08-04 04:31] LABS: BASO # 0.1 10^3/uL (0.0-0.2); BASO % 0.3 % (0.0-1.0); EOS # 0.1 10^3/uL (0.0-0.5); EOS % 0.5 % (0.0-3.0); HEMATOCRIT 29.4 % (36.0-47.0); HEMOGLOBIN 9.3 g/dl (12.0-15.5); LYMPH # 1.7 10^3/uL (1.5-5.0); LYMPH % 8.4 % (24.0-44.0); MEAN CORPUSCULAR HEMOGLOBIN 28.5 pg (27.0-33.0); MEAN CORPUSCULAR HGB CONC 31.6 g/dl (32.0-36.5); MEAN CORPUSCULAR VOLUME 90.2 fl (80.0-96.0); MONO # 1.5 10^3/uL (0.0-0.8); MONO % 7.4 % (2.0-8.0); NEUTROPHILS # 16.3 10^3/uL (1.5-8.5); NEUTROPHILS % 82.7 % (36.0-66.0); PLATELET COUNT, AUTOMATED 200 10^3/uL (150-450); RED BLOOD COUNT 3.26 10^6/uL (4.00-5.40); WHITE BLOOD COUNT 19.7 10^3/uL (4.0-10.0)
[2022-08-04 04:46] LABS: ALBUMIN 1.9 G/DL (3.2-5.2); BILIRUBIN,TOTAL 0.3 MG/DL (0.3-1.2); CALCIUM LEVEL 6.5 MG/DL (8.3-10.6); CREATININE FOR GFR 1.39 MG/DL (0.55-1.30); GLOMERULAR FILTRATION RATE 38.6 (>32); POTASSIUM SERUM 3.9 MMOL/L (3.5-5.1); TOTAL PROTEIN 4.5 G/DL (5.7-8.2)
[2022-08-04] MEDS: INSULIN LISPRO (NovoLOG) PER UNIT SC SCH ×2 (06:00)
[2022-08-04] MEDS: MORPHINE 2 MG/ML 1ML VIAL IV PRN (07:47)
[2022-08-04] MEDS: LACTOBACILLUS ACIDOPHILUS CAP (BACID) PO SCH ×2 (07:52→17:21)
[2022-08-04] MEDS ORDERED: MAG SULF 1GM/100ML (MAG RUN) 1 GM in IV 1 EA IV SCH (09:00)
[2022-08-04] MEDS: ONDANSETRON 4MG 2ML VIAL IV PRN (09:06)
[2022-08-04] MEDS: LR 1,000 ML IV SCH (09:11)
[2022-08-04] MEDS: oxyBUTYnin 5 MG TAB PO PRN (09:19)
[2022-08-04] MEDS: ASPIRIN 81MG ENTERIC TABLET PO SCH (11:55)
[2022-08-04] MEDS: ACETAMINOPHEN TAB 650MG DOSE (2X325MG) PO PRN (12:08)
[2022-08-04 14:35] LABS: BASO # 0.1 10^3/uL (0.0-0.2); BASO % 0.3 % (0.0-1.0); EOS # 0.1 10^3/uL (0.0-0.5); EOS % 0.5 % (0.0-3.0); HEMATOCRIT 28.9 % (36.0-47.0); HEMOGLOBIN 9.1 g/dl (12.0-15.5); LYMPH # 1.5 10^3/uL (1.5-5.0); LYMPH % 8.1 % (24.0-44.0); MEAN CORPUSCULAR HEMOGLOBIN 28.2 pg (27.0-33.0); MEAN CORPUSCULAR HGB CONC 31.5 g/dl (32.0-36.5); MEAN CORPUSCULAR VOLUME 89.5 fl (80.0-96.0); MONO # 1.2 10^3/uL (0.0-0.8); MONO % 6.3 % (2.0-8.0); NEUTROPHILS # 15.8 10^3/uL (1.5-8.5); PLATELET COUNT, AUTOMATED 193 10^3/uL (150-450); RED BLOOD COUNT 3.23 10^6/uL (4.00-5.40); WHITE BLOOD COUNT 18.8 10^3/uL (4.0-10.0)
[2022-08-04] MEDS ORDERED: VANCOMYCIN HCL 1,000 MG, VIAL MATE ADAPTER 1 EACH in D5W 250 ML IV SCH (15:00)
[2022-08-04] MEDS ORDERED: VANCOMYCIN HCL 750 MG, VIAL MATE ADAPTER 1 EACH in NS 250 ML IV SCH (15:00)
[2022-08-04] MEDS: PIPERACILLIN/TAZOBACTAM SOD 3.375 GM in D5W MINI-BAG PLUS 50 ML IV SCH ×2 (17:00→21:18)
[2022-08-04] MEDS: SODIUM CHLORIDE NASAL 0.65% SPRAY BTL (OCEAN) SCH (21:18)
[2022-08-04] MEDS: ATORVASTATIN 20 MG TAB PO SCH (21:19)
[2022-08-05] VITALS (12 sets, daily range): BP systolic 110–158; BP diastolic 56–96
[2022-08-05] MEDS: LR 1,000 ML IV SCH ×2 (00:03→13:05)
[2022-08-05] MEDS: ACETAMINOPHEN TAB 650MG DOSE (2X325MG) PO PRN (01:21)
[2022-08-05] MEDS: PIPERACILLIN/TAZOBACTAM SOD 3.375 GM in D5W MINI-BAG PLUS 50 ML IV SCH ×4 (04:27→21:49)
[2022-08-05 04:36] LABS: HEMATOCRIT 27.9 % (36.0-47.0); MEAN CORPUSCULAR HEMOGLOBIN 28.6 pg (27.0-33.0); MEAN CORPUSCULAR HGB CONC 32.3 g/dl (32.0-36.5); MEAN CORPUSCULAR VOLUME 88.6 fl (80.0-96.0); PLATELET COUNT, AUTOMATED 189 10^3/uL (150-450); RED BLOOD COUNT 3.15 10^6/uL (4.00-5.40); WHITE BLOOD COUNT 11.5 10^3/uL (4.0-10.0)
[2022-08-05 05:04] LABS: BLOOD UREA NITROGEN 10 MG/DL (9-23); CALCIUM LEVEL 7.2 MG/DL (8.3-10.6); CARBON DIOXIDE LEVEL 27 MMOL/L (20-31); CHLORIDE LEVEL 113 MMOL/L (98-107); CREATININE FOR GFR 0.85 MG/DL (0.55-1.30); GLOMERULAR FILTRATION RATE > 60.0 (>32); GLUCOSE, FASTING 84 MG/DL (74-106); MAGNESIUM LEVEL 1.7 MG/DL (1.8-2.4); POTASSIUM SERUM 3.4 MMOL/L (3.5-5.1); SODIUM LEVEL 144 MMOL/L (136-145)
[2022-08-05] MEDS ORDERED: MAG SULF 1GM/100ML (MAG RUN) 1 GM in IV 1 EA IV ONE (06:00)
[2022-08-05] MEDS ORDERED: KCL 10MEQ/100ML SWI (KRUN) 10 MEQ in IV 1 EA IV ONE (07:00)
[2022-08-05] MEDS ORDERED: BISACODYL 10MG SUPP PR PRN (07:15)
[2022-08-05] MEDS ORDERED: MOM 30ML SUSPENSION UDC PO PRN (07:15)
[2022-08-05 07:54] LABS: VANCOMYCIN RANDOM 10.6 UG/ML
[2022-08-05] MEDS: SODIUM CHLORIDE NASAL 0.65% SPRAY BTL (OCEAN) SCH ×3 (08:46→20:25)
[2022-08-05] MEDS: SENOKOT S TAB PO SCH ×2 (08:46→20:02)
[2022-08-05] MEDS: LACTOBACILLUS ACIDOPHILUS CAP (BACID) PO SCH ×2 (08:46→18:02)
[2022-08-05] MEDS: VANCOMYCIN HCL 750 MG, VIAL MATE ADAPTER 1 EACH in D5W 250 ML IV SCH ×2 (08:47→20:19)
[2022-08-05] MEDS: ONDANSETRON 4MG 2ML VIAL IV PRN (08:59)
[2022-08-05 12:26] LABS: BLOOD UREA NITROGEN 8 MG/DL (9-23); CALCIUM LEVEL 7.4 MG/DL (8.3-10.6); CARBON DIOXIDE LEVEL 27 MMOL/L (20-31); CHLORIDE LEVEL 110 MMOL/L (98-107); CREATININE FOR GFR 0.75 MG/DL (0.55-1.30); GLOMERULAR FILTRATION RATE > 60.0 (>32); GLUCOSE, FASTING 90 MG/DL (74-106); POTASSIUM SERUM 3.3 MMOL/L (3.5-5.1); SODIUM LEVEL 141 MMOL/L (136-145)
[2022-08-05] MEDS: PANTOPRAZOLE 20 MG TAB PO SCH (13:04)
[2022-08-05] MEDS: oxyBUTYnin 5 MG TAB PO PRN ×2 (13:04→20:19)
[2022-08-05] MEDS ORDERED: POTASSIUM CHLORIDE 10MEQ SR TABLET PO ONE (15:00)
[2022-08-05] MEDS: ATORVASTATIN 20 MG TAB PO SCH (20:19)
[2022-08-06] VITALS: BP 113/58
[2022-08-06] MEDS: LR 1,000 ML IV SCH (01:54)
[2022-08-06] MEDS: PIPERACILLIN/TAZOBACTAM SOD 3.375 GM in D5W MINI-BAG PLUS 50 ML IV SCH ×4 (03:53→21:51)
[2022-08-06 04:00] VITALS: BP 136/61
[2022-08-06 05:29] LABS: HEMATOCRIT 29.4 % (36.0-47.0); HEMOGLOBIN 9.3 g/dl (12.0-15.5); MEAN CORPUSCULAR HEMOGLOBIN 27.4 pg (27.0-33.0); MEAN CORPUSCULAR HGB CONC 31.6 g/dl (32.0-36.5); MEAN CORPUSCULAR VOLUME 86.7 fl (80.0-96.0); PLATELET COUNT, AUTOMATED 202 10^3/uL (150-450); RED BLOOD COUNT 3.39 10^6/uL (4.00-5.40); WHITE BLOOD COUNT 8.3 10^3/uL (4.0-10.0)
[2022-08-06 06:03] LABS: BLOOD UREA NITROGEN 6 MG/DL (9-23); CALCIUM LEVEL 7.6 MG/DL (8.3-10.6); CARBON DIOXIDE LEVEL 27 MMOL/L (20-31); CHLORIDE LEVEL 110 MMOL/L (98-107); CREATININE FOR GFR 0.78 MG/DL (0.55-1.30); GLOMERULAR FILTRATION RATE > 60.0 (>32); GLUCOSE, FASTING 100 MG/DL (74-106); MAGNESIUM LEVEL 1.5 MG/DL (1.8-2.4); POTASSIUM SERUM 3.4 MMOL/L (3.5-5.1); SODIUM LEVEL 141 MMOL/L (136-145)
[2022-08-06] MEDS: MAG SULF 1GM/100ML (MAG RUN) 1 GM in IV 1 EA IV SCH ×2 (06:22→07:44)
[2022-08-06] MEDS ORDERED: POTASSIUM CHLORIDE 10% LIQ 20MEQ/15ML UDC PO ONE (07:00)
[2022-08-06] MEDS: LACTOBACILLUS ACIDOPHILUS CAP (BACID) PO SCH ×2 (07:44→17:10)
[2022-08-06] MEDS: PANTOPRAZOLE 20 MG TAB PO SCH (07:45)
[2022-08-06] MEDS: MAGNESIUM OXIDE 400MG TAB (MAG-OX) PO SCH ×2 (07:45→20:27)
[2022-08-06] MEDS: SODIUM CHLORIDE NASAL 0.65% SPRAY BTL (OCEAN) SCH ×3 (07:46→20:27)
[2022-08-06 08:00] VITALS: BP 137/77
[2022-08-06] MEDS: SENOKOT S TAB PO SCH ×2 (09:00→20:27)
[2022-08-06] MEDS: ASPIRIN 81MG ENTERIC TABLET PO SCH (11:06)
[2022-08-06 14:00] VITALS: BP 124/67
[2022-08-06 20:00] VITALS: BP 136/79
[2022-08-06] MEDS: ATORVASTATIN 20 MG TAB PO SCH (20:26)
[2022-08-07] MEDS: PIPERACILLIN/TAZOBACTAM SOD 3.375 GM in D5W MINI-BAG PLUS 50 ML IV SCH (04:05)
[2022-08-07 04:14] VITALS: BP 139/83
[2022-08-07 06:00] LABS: HEMATOCRIT 29.9 % (36.0-47.0); HEMOGLOBIN 9.7 g/dl (12.0-15.5); MEAN CORPUSCULAR HEMOGLOBIN 27.9 pg (27.0-33.0); MEAN CORPUSCULAR HGB CONC 32.4 g/dl (32.0-36.5); MEAN CORPUSCULAR VOLUME 85.9 fl (80.0-96.0); PLATELET COUNT, AUTOMATED 232 10^3/uL (150-450); RED BLOOD COUNT 3.48 10^6/uL (4.00-5.40); WHITE BLOOD COUNT 6.3 10^3/uL (4.0-10.0)
[2022-08-07 06:26] LABS: BLOOD UREA NITROGEN 5 MG/DL (9-23); CALCIUM LEVEL 7.5 MG/DL (8.3-10.6); CARBON DIOXIDE LEVEL 26 MMOL/L (20-31); CHLORIDE LEVEL 109 MMOL/L (98-107); CREATININE FOR GFR 0.78 MG/DL (0.55-1.30); GLOMERULAR FILTRATION RATE > 60.0 (>32); GLUCOSE, FASTING 106 MG/DL (74-106); MAGNESIUM LEVEL 1.8 MG/DL (1.8-2.4); POTASSIUM SERUM 3.7 MMOL/L (3.5-5.1); SODIUM LEVEL 142 MMOL/L (136-145)
[2022-08-07 08:15] VITALS: BP 139/80
[2022-08-07] MEDS: SENOKOT S TAB PO SCH ×2 (09:00→21:00)
[2022-08-07] MEDS: ONDANSETRON 4MG 2ML VIAL IV PRN (09:20)
[2022-08-07] MEDS: PANTOPRAZOLE 20 MG TAB PO SCH (09:30)
[2022-08-07] MEDS: MAGNESIUM OXIDE 400MG TAB (MAG-OX) PO SCH ×2 (09:30→21:14)
[2022-08-07] MEDS: LACTOBACILLUS ACIDOPHILUS CAP (BACID) PO SCH ×2 (09:31→18:35)
[2022-08-07] MEDS: SODIUM CHLORIDE NASAL 0.65% SPRAY BTL (OCEAN) SCH ×3 (09:31→21:14)
[2022-08-07] MEDS: PIPERACILLIN/TAZOBACTAM SOD 4.5 GM in D5W MINI-BAG PLUS 50 ML IV SCH ×3 (10:27→21:14)
[2022-08-07 12:00] VITALS: BP 135/80
[2022-08-07 16:00] VITALS: BP 136/76
[2022-08-07 19:48] VITALS: BP 145/70
[2022-08-07] MEDS: ATORVASTATIN 20 MG TAB PO SCH (21:14)
[2022-08-07] MEDS: ACETAMINOPHEN TAB 650MG DOSE (2X325MG) PO PRN (21:35)
[2022-08-08 04:00] VITALS: BP 114/63
[2022-08-08 04:22] LABS: HEMATOCRIT 30.5 % (36.0-47.0); HEMOGLOBIN 9.7 g/dl (12.0-15.5); MEAN CORPUSCULAR HEMOGLOBIN 27.9 pg (27.0-33.0); MEAN CORPUSCULAR HGB CONC 31.8 g/dl (32.0-36.5); MEAN CORPUSCULAR VOLUME 87.6 fl (80.0-96.0); PLATELET COUNT, AUTOMATED 257 10^3/uL (150-450); RED BLOOD COUNT 3.48 10^6/uL (4.00-5.40); WHITE BLOOD COUNT 6.6 10^3/uL (4.0-10.0)
[2022-08-08 04:55] LABS: BLOOD UREA NITROGEN 8 MG/DL (9-23); CARBON DIOXIDE LEVEL 27 MMOL/L (20-31); CHLORIDE LEVEL 110 MMOL/L (98-107); CREATININE FOR GFR 0.91 MG/DL (0.55-1.30); GLOMERULAR FILTRATION RATE > 60.0 (>32); GLUCOSE, FASTING 113 MG/DL (74-106); MAGNESIUM LEVEL 1.7 MG/DL (1.8-2.4); POTASSIUM SERUM 3.6 MMOL/L (3.5-5.1); SODIUM LEVEL 142 MMOL/L (136-145)
[2022-08-08] MEDS: PIPERACILLIN/TAZOBACTAM SOD 4.5 GM in D5W MINI-BAG PLUS 50 ML IV SCH ×4 (05:08→22:00)
[2022-08-08 08:00] VITALS: BP 107/77
[2022-08-08] MEDS ORDERED: MAG SULF 1GM/100ML (MAG RUN) 1 GM in IV 1 EA IV ONE (08:00)
[2022-08-08] MEDS: LACTOBACILLUS ACIDOPHILUS CAP (BACID) PO SCH ×2 (08:13→18:19)
[2022-08-08] MEDS: MAGNESIUM OXIDE 400MG TAB (MAG-OX) PO SCH ×2 (08:13→20:12)
[2022-08-08] MEDS: PANTOPRAZOLE 20 MG TAB PO SCH (08:13)
[2022-08-08] MEDS: SODIUM CHLORIDE NASAL 0.65% SPRAY BTL (OCEAN) SCH ×3 (08:14→20:13)
[2022-08-08] MEDS: SENOKOT S TAB PO SCH ×2 (09:00→20:13)
[2022-08-08 16:00] VITALS: BP 118/79
[2022-08-08 18:51] VITALS: BP 133/75
[2022-08-08 20:00] VITALS: BP 142/83
[2022-08-08] MEDS: ATORVASTATIN 20 MG TAB PO SCH (20:12)
[2022-08-09] MEDS: PIPERACILLIN/TAZOBACTAM SOD 4.5 GM in D5W MINI-BAG PLUS 50 ML IV SCH ×4 (04:31→21:51)
[2022-08-09 06:00] VITALS: BP 115/70
[2022-08-09 06:43] LABS: HEMATOCRIT 33.4 % (36.0-47.0); HEMOGLOBIN 10.5 g/dl (12.0-15.5); MEAN CORPUSCULAR HEMOGLOBIN 27.3 pg (27.0-33.0); MEAN CORPUSCULAR HGB CONC 31.4 g/dl (32.0-36.5); PLATELET COUNT, AUTOMATED 310 10^3/uL (150-450); RED BLOOD COUNT 3.84 10^6/uL (4.00-5.40); WHITE BLOOD COUNT 8.5 10^3/uL (4.0-10.0)
[2022-08-09 07:19] LABS: BLOOD UREA NITROGEN 7 MG/DL (9-23); CALCIUM LEVEL 7.9 MG/DL (8.3-10.6); CARBON DIOXIDE LEVEL 26 MMOL/L (20-31); CHLORIDE LEVEL 109 MMOL/L (98-107); CREATININE FOR GFR 0.85 MG/DL (0.55-1.30); GLOMERULAR FILTRATION RATE > 60.0 (>32); GLUCOSE, FASTING 96 MG/DL (74-106); MAGNESIUM LEVEL 1.8 MG/DL (1.8-2.4); POTASSIUM SERUM 3.7 MMOL/L (3.5-5.1); SODIUM LEVEL 143 MMOL/L (136-145)
[2022-08-09] MEDS: PANTOPRAZOLE 20 MG TAB PO SCH (09:56)
[2022-08-09] MEDS: SENOKOT S TAB PO SCH ×2 (09:56→21:50)
[2022-08-09] MEDS: MAGNESIUM OXIDE 400MG TAB (MAG-OX) PO SCH ×2 (09:56→21:51)
[2022-08-09] MEDS: SODIUM CHLORIDE NASAL 0.65% SPRAY BTL (OCEAN) SCH ×3 (09:56→21:51)
[2022-08-09] MEDS: LACTOBACILLUS ACIDOPHILUS CAP (BACID) PO SCH ×2 (09:56→17:47)
[2022-08-09] MEDS: ONDANSETRON 4MG 2ML VIAL IV PRN (09:58)
[2022-08-09 14:00] VITALS: BP 128/69
[2022-08-09] MEDS: ASPIRIN 81MG ENTERIC TABLET PO SCH (16:27)
[2022-08-09] MEDS ORDERED: RISATAB3 PO (19:35)
[2022-08-09] MEDS ORDERED: MAGN400T2 PO (19:35)
[2022-08-09] MEDS ORDERED: OXYB5TAB10 PO (19:35)
[2022-08-09] MEDS ORDERED: ACET1TAB55 PO (19:35)
[2022-08-09] MEDS ORDERED: PANT20TA6 PO (19:35)
[2022-08-09 20:21] VITALS: BP 107/73
[2022-08-09] MEDS: ATORVASTATIN 20 MG TAB PO SCH (21:51)
[2022-08-10] MEDS: PIPERACILLIN/TAZOBACTAM SOD 4.5 GM in D5W MINI-BAG PLUS 50 ML IV SCH (04:26)
[2022-08-10 05:50] VITALS: BP 115/65
[2022-08-10 06:40] LABS: HEMATOCRIT 32.1 % (36.0-47.0); MEAN CORPUSCULAR HEMOGLOBIN 27.5 pg (27.0-33.0); MEAN CORPUSCULAR HGB CONC 31.2 g/dl (32.0-36.5); MEAN CORPUSCULAR VOLUME 88.4 fl (80.0-96.0); PLATELET COUNT, AUTOMATED 364 10^3/uL (150-450); RED BLOOD COUNT 3.63 10^6/uL (4.00-5.40); WHITE BLOOD COUNT 8.3 10^3/uL (4.0-10.0)
[2022-08-10 07:09] LABS: BLOOD UREA NITROGEN 9 MG/DL (9-23); CALCIUM LEVEL 8.3 MG/DL (8.3-10.6); CARBON DIOXIDE LEVEL 25 MMOL/L (20-31); CHLORIDE LEVEL 110 MMOL/L (98-107); CREATININE FOR GFR 0.88 MG/DL (0.55-1.30); GLOMERULAR FILTRATION RATE > 60.0 (>32); GLUCOSE, FASTING 102 MG/DL (74-106); MAGNESIUM LEVEL 1.8 MG/DL (1.8-2.4); POTASSIUM SERUM 3.9 MMOL/L (3.5-5.1); SODIUM LEVEL 144 MMOL/L (136-145)
[2022-08-10] MEDS: LACTOBACILLUS ACIDOPHILUS CAP (BACID) PO SCH (08:34)
[2022-08-10] MEDS: PANTOPRAZOLE 20 MG TAB PO SCH (08:34)
[2022-08-10] MEDS: SENOKOT S TAB PO SCH (08:34)
[2022-08-10] MEDS: MAGNESIUM OXIDE 400MG TAB (MAG-OX) PO SCH (08:34)
[2022-08-10] MEDS: ASPIRIN 81MG ENTERIC TABLET PO SCH (08:34)
[2022-08-10] MEDS: SODIUM CHLORIDE NASAL 0.65% SPRAY BTL (OCEAN) SCH (08:35)
== END 2022-08-10 12:25 | disposition home or self-care (01) | DRG 871 ==
LOC: M MSPAV 08-03 00:13 → M ICU 08-03 15:37 → M MSPAV 08-08 18:31
PROVIDERS: ADMIT Internal Medicine; ATTEND Internal Medicine
PROC: 05HM33Z Insertion of Infusion Device into Right Internal Jugular Vein, Percutaneous Approach (ICD-10-PCS; principal; 2022-08-03)
DX: A41.51 Sepsis due to Escherichia coli [E. coli] (principal); R65.21 Severe sepsis with septic shock; K85.90 Acute pancreatitis without necrosis or infection, unspecified; N39.0 Urinary tract infection, site not specified; N13.4 Hydroureter; N13.30 Unspecified hydronephrosis; J84.9 Interstitial pulmonary disease, unspecified; J90 Pleural effusion, not elsewhere classified; D68.32 Hemorrhagic disorder due to extrinsic circulating anticoagulants; E87.20 Acidosis, unspecified; K21.9 Gastro-esophageal reflux disease without esophagitis; I10 Essential (primary) hypertension; E87.6 Hypokalemia; I95.9 Hypotension, unspecified; E78.5 Hyperlipidemia, unspecified; M85.88 Other specified disorders of bone density and structure, other site; J44.9 Chronic obstructive pulmonary disease, unspecified; Z85.51 Personal history of malignant neoplasm of bladder; E83.42 Hypomagnesemia; Z92.21 Personal history of antineoplastic chemotherapy; R04.0 Epistaxis; R31.0 Gross hematuria; F17.200 Nicotine dependence, unspecified, uncomplicated; Z86.73 Personal history of transient ischemic attack (TIA), and cerebral infarction without residual deficits; Z90.13 Acquired absence of bilateral breasts and nipples; Z90.49 Acquired absence of other specified parts of digestive tract; R00.1 Bradycardia, unspecified; Z79.82 Long term (current) use of aspirin; Z79.899 Other long term (current) drug therapy; Z88.2 Allergy status to sulfonamides; Z79.01 Long term (current) use of anticoagulants; Z85.3 Personal history of malignant neoplasm of breast; K59.00 Constipation, unspecified

== ENCOUNTER → 2022-11-16 | Outpatient (CLI) | payer MEDICARE ==
[~2022-11-16] MED LIST changes: +ACET1TAB55 PO; +GABA-1171 PO; +MAGN400T2 PO; +OXYB5TAB10 PO; +PANT20TA6 PO; +RISATAB3 PO; +SENN1TAB41 PO
== END ==
LOC: M SOG 09:58
PROVIDERS: ATTEND Orthopaedic Surgery
DX: M25.552 Pain in left hip (principal)

== ENCOUNTER → 2022-11-30 | Outpatient (REF) | payer MEDICARE | LOC: M SMT 13:10 | PROVIDERS: ATTEND Urology | DX: N39.0 Urinary tract infection, site not specified (principal); C67.9 Malignant neoplasm of bladder, unspecified ==

== ENCOUNTER → 2023-03-09 | Outpatient (REF) | payer MEDICARE ==
[~2023-03-09] MED LIST changes: -DIPH-329 PO; +DIPH-448 PO; -OXYB5TAB10 PO; +OXYB5TAB11 PO
== END ==
LOC: M SMT 13:23
PROVIDERS: ATTEND Urology
DX: C67.9 Malignant neoplasm of bladder, unspecified (principal)

== ENCOUNTER → 2023-06-29 | Outpatient (REF) | payer MEDICARE ==
[~2023-06-29] MED LIST changes: -OXYB5TAB11 PO; +OXYB5TAB14 PO; -SENN1TAB41 PO; +SENN1TAB85 PO
== END ==
LOC: M SMT 13:49
PROVIDERS: ATTEND Urology
DX: C67.9 Malignant neoplasm of bladder, unspecified (principal)

== ENCOUNTER 2023-08-23 06:16 | Day surgery (SDC) | payer MEDICARE ==
[~2023-08-23] VITALS: Ht 167.6 cm; Wt 76.4 kg
[~2023-08-23 06:16] MED LIST changes: +FAMO40TA3 PO; +MIRA3350 PO; +MULT-90 PO
[2023-08-23] MEDS ORDERED: propofoL 500 MG/50 ML VIAL As Ordered ONE (06:46)
[2023-08-23] MEDS ORDERED: LR 1,000 ML IV SCH ×2 (06:50→08:50)
[2023-08-23] MEDS ORDERED: fentaNYL 100 MCG/2 ML INJECTION As Ordered ONE (06:56)
[2023-08-23] MEDS ORDERED: MIDAZOLAM INJ 2MG/2ML VIAL As Ordered ONE (06:56)
[2023-08-23] MEDS ORDERED: ROCURONIUM BROMIDE 50MG/5ML VIAL As Ordered ONE (06:57)
[2023-08-23] MEDS ORDERED: LIDOCAINE 2% 100MG/5ML SDV (FOR ANES.) As Ordered ONE (06:59)
[2023-08-23] MEDS: ceFAZolin SOD 2 GM in IV 1 EA IV ONE (07:30)
[2023-08-23] MEDS ORDERED: PHENYLephrine 500MCG 5ML (100MCG/ML) SYRINGE As Ordered ONE (07:55)
[2023-08-23] MEDS ORDERED: SUGAMMADEX SODIUM 500 MG/5 ML VIAL (BRIDION) As Ordered ONE (08:11)
[2023-08-23] MEDS ORDERED: ONDANSETRON 4MG 2ML VIAL As Ordered ONE (08:34)
[2023-08-23] MEDS: ISOVUE-300 61% 100ML VIAL As Ordered ONE (08:40)
[2023-08-23] MEDS: mitoMYcin 40MG VIAL *UROLOGY INTRAVESIC ONE (08:41)
[2023-08-23] MEDS ORDERED: HYDROMORPHONE HCL 0.5 MG/ 0.5 ML SYRINGE IV PRN (08:50)
[2023-08-23] MEDS ORDERED: oxyCODONE 5MG TAB PO PRN (08:50)
[2023-08-23] MEDS ORDERED: ONDANSETRON 4MG 2ML VIAL IV PRN (08:50)
[2023-08-23] MEDS ORDERED: oxyBUTYnin 5 MG TAB PO PRN (09:20)
[2023-08-23] MEDS ORDERED: ACETAMINOPHEN TAB 650MG DOSE (2X325MG) PO PRN (09:20)
[2023-08-23] MEDS: fentaNYL 100 MCG/2 ML INJECTION IV PRN (09:24)
[2023-08-23] MEDS ORDERED: OXYB10TA23 PO (09:35)
[2023-08-23 10:53] VITALS: BP 152/84; TEMP 96.9; O2SAT 97
== END 2023-08-23 11:05 | disposition home or self-care (01) ==
LOC: M SDC 06:16
PROVIDERS: ATTEND Urology
DX: C67.8 Malignant neoplasm of overlapping sites of bladder (principal); I10 Essential (primary) hypertension; E78.00 Pure hypercholesterolemia, unspecified; K21.9 Gastro-esophageal reflux disease without esophagitis; Z79.899 Other long term (current) drug therapy; Z79.82 Long term (current) use of aspirin; Z79.02 Long term (current) use of antithrombotics/antiplatelets; Z86.73 Personal history of transient ischemic attack (TIA), and cerebral infarction without residual deficits; Z88.2 Allergy status to sulfonamides; Z90.710 Acquired absence of both cervix and uterus; Z85.828 Personal history of other malignant neoplasm of skin; Z87.891 Personal history of nicotine dependence; E78.5 Hyperlipidemia, unspecified
CPT/HCPCS: 52240; 74420; 88307; J0690; J1100; J2250; J2371; J2405; J3010; J9280; Q9967

== ENCOUNTER → 2023-12-27 | Outpatient (REF) | payer MEDICARE | LOC: M SMT 17:15 | PROVIDERS: ATTEND Urology | DX: C67.9 Malignant neoplasm of bladder, unspecified (principal) ==

== ENCOUNTER → 2024-03-20 | Outpatient (REF) | payer MEDICARE | LOC: M SMT 17:20 | PROVIDERS: ATTEND Urology | DX: C67.9 Malignant neoplasm of bladder, unspecified (principal) ==

== ENCOUNTER → 2024-07-28 | Outpatient (REF) | payer MEDICARE | LOC: M SMT 17:14 | PROVIDERS: ATTEND Urology | DX: C67.9 Malignant neoplasm of bladder, unspecified (principal) ==

== ENCOUNTER → 2024-10-25 | Outpatient (CLI) | payer MEDICARE ==
[~2024-10-25] MED LIST changes: +AMOX875T2 PO; +BD P0.9I2 IVFLUSH; +PRED20TA PO; +SODIUM CHLORIDE 0.9% 1000 ML XX SCH; +VITA500045 PO
[2024-10-25 10:21] VITALS: TEMP 98
[2024-10-25] MEDS: CEPHALEXIN 500 MG CAP PO ONE (10:33)
[2024-10-25] MEDS: LIDOCAINE 1% MDV 20 ML VIAL SC SCH (10:58)
[2024-10-25] MEDS: ISOVUE-300 61% 100 ML VIAL IV SCH (11:05)
[2024-10-25 11:15] VITALS: BP 138/89; O2SAT 97
== END ==
LOC: M IRPRO 10:05
PROVIDERS: ATTEND Radiology Diagnostic Radiology
DX: N13.9 Obstructive and reflux uropathy, unspecified (principal)

== ENCOUNTER → 2024-10-25 | Outpatient (CLI) | payer MEDICARE ==
[~2024-10-25] MED LIST changes: -SODIUM CHLORIDE 0.9% 1000 ML XX SCH
== END ==
LOC: M RAD 09:43
PROVIDERS: ATTEND Registered Nurse School
DX: Z43.6 Encounter for attention to other artificial openings of urinary tract (principal); N13.9 Obstructive and reflux uropathy, unspecified
CPT/HCPCS: 50435; 74150; C1729; Q9967

== ENCOUNTER 2024-12-09 03:43 | Emergency (ER) | payer MEDICARE ==
[~2024-12-09] VITALS: Ht 172.7 cm; Wt 61.3 kg
[~2024-12-09 03:43] MED LIST changes: +ERGO125013 PO; -VITA500045 PO; -VITA500T17 PO; +VITA500T8 PO
[2024-12-09 05:06] LABS: BASO # 0.0 10^3/uL (0.0-0.2); BASO % 0.2 % (0.0-1.0); EOS # 0.1 10^3/uL (0.0-0.5); EOS % 0.8 % (0.0-3.0); LYMPH # 1.2 10^3/uL (1.5-5.0); LYMPH % 11.6 % (24.0-44.0); MONO # 0.9 10^3/uL (0.0-0.8); MONO % 8.9 % (2.0-8.0); NEUTROPHILS # 7.8 10^3/uL (1.5-8.5); NEUTROPHILS % 78.1 % (36.0-66.0); PLATELET COUNT, AUTOMATED 427 10^3/uL (150-450)
[2024-12-09 05:17] LABS: KETONE, URINE AUTO RFX NEGATIVE (NEGATIVE); MUCUS, URINE RFX SMALL (NEGATIVE); RBC, URINE AUTO RFX 14 /HPF (0-3); SQUAM EPITHELIAL CELL UR AURFX 0 /HPF (0-6)
[2024-12-09 05:19] LABS: LEUKOCYTE ESTERASE UR AUTO RFX 3+ (NEGATIVE); NITRITE, URINE AUTO RFX POSITIVE (NEGATIVE); WBC, URINE AUTO RFX 104 /HPF (0-3)
[2024-12-09 05:35] LABS: CALCIUM LEVEL 9.3 MG/DL (8.3-10.6); CARBON DIOXIDE LEVEL 28.0 MMOL/L (20-31); CHLORIDE LEVEL 107.0 MMOL/L (98-107); CREATININE FOR GFR 1.11 MG/DL (0.55-1.30); GLOMERULAR FILTRATION RATE 49.0 (>32); POTASSIUM SERUM 3.9 MMOL/L (3.5-5.1); SODIUM LEVEL 145.0 MMOL/L (136-145)
[2024-12-09] MEDS: MORPHINE 4 MG/ML 1 ML VIAL IV PRN (06:03)
[2024-12-09] MEDS: MEROPENEM 1 GM in IV 1 EA IV STA (07:25)
[2024-12-09] MEDS: NS 500 ML IV ONE (08:03)
[2024-12-09 10:00] VITALS: BP 128/76
[2024-12-09 10:00] LABS: SP GRAVITY,URINE MANUAL REFLEX 1.015 (1.002-1.035)
[2024-12-09 10:01] LABS: KETONE, URINE MANUAL REFLEX OBSCURED mg/dL (NEGATIVE); NITRITE, URINE MANUAL RFX OBSCURED (NEGATIVE); PROTEIN, URINE MANUAL REFLEX 3+ mg/dL (NEGATIVE); UROBILINOGEN, UA MANUAL REFLEX OBSCURED mg/dl (NORMAL)
[2024-12-09 10:14] LABS: RBC, URINE MAN REFLEX TNTC /hpf (0-3); WBC, URINE MAN RFX TNTC /hpf (0-3)
[2024-12-09 10:15] LABS: HYALINE CAST, URINE RFX NONE SEEN /lpf (0-1); SQUAMOUS EPITHELIAL URINE RFX NONE SEEN /hpf (SMALL AMT)
[2024-12-09 10:16] LABS: MICROSCOPIC EXAM RFX UNSPUN
[2024-12-09] MEDS ORDERED: MACR100C43 PO (10:26)
[2024-12-09 10:30] VITALS: O2SAT 97
[2024-12-09 10:36] VITALS: TEMP 97.8
== END 2024-12-09 10:37 | disposition home or self-care (01) ==
LOC: M ED 03:43
DX: N13.30 Unspecified hydronephrosis (principal); T83.092A Other mechanical complication of nephrostomy catheter, initial encounter; N39.0 Urinary tract infection, site not specified; K57.30 Diverticulosis of large intestine without perforation or abscess without bleeding; C67.9 Malignant neoplasm of bladder, unspecified; K21.9 Gastro-esophageal reflux disease without esophagitis; Z86.73 Personal history of transient ischemic attack (TIA), and cerebral infarction without residual deficits; E78.5 Hyperlipidemia, unspecified; Z95.3 Presence of xenogenic heart valve; M85.80 Other specified disorders of bone density and structure, unspecified site; F17.200 Nicotine dependence, unspecified, uncomplicated; Z79.82 Long term (current) use of aspirin; Z79.899 Other long term (current) drug therapy; Z88.2 Allergy status to sulfonamides
CPT/HCPCS: 74176; 80048; 81000; 81001; 81015; 83605; 85025; 87040; 87077; 87086; 87088; 87154; 87184; 87186; 96361; 96365; 96366; 96375; 99284; J2184

== ENCOUNTER → 2024-12-29 | Outpatient (CLI) | payer MEDICARE ==
[~2024-12-29] MED LIST changes: +MACR100C43 PO; +diphenhydrAMINE 50 MG/ML VIAL As Ordered ONE
[2024-12-29 11:45] VITALS: TEMP 97.3
[2024-12-29] MEDS: MIDAZOLAM INJ 2 MG/2 ML VIAL IV PRN (13:42)
[2024-12-29] MEDS: CIPROFLOXACIN 400 MG in IV 1 EA IV ONE (13:44)
[2024-12-29] MEDS: SODIUM CHLORIDE 0.9% 1000 ML XX SCH (13:44)
[2024-12-29] MEDS: NS (Normal Saline) 0.9% 1,000 ML IV SCH (13:44)
[2024-12-29] MEDS: diphenhydrAMINE 50 MG/ML VIAL IV ONE (13:45)
[2024-12-29] MEDS: ISOVUE-300 61% 100 ML VIAL IV SCH (14:13)
[2024-12-29] MEDS: LIDOCAINE 1% MDV 20 ML VIAL SC SCH (14:13)
[2024-12-29 15:00] VITALS: BP 138/76; O2SAT 93
== END ==
LOC: M IRPRO 11:34
PROVIDERS: ATTEND Radiology Diagnostic Radiology
DX: N13.30 Unspecified hydronephrosis (principal)
CPT/HCPCS: 50435; 99152; 99153; C1725; C1729; C1769; C1894; J0744; J1200; J2250; J3010; Q9967

== ENCOUNTER → 2025-01-29 | Outpatient (REF) | payer MEDICARE ==
[~2025-01-29] MED LIST changes: -diphenhydrAMINE 50 MG/ML VIAL As Ordered ONE
== END ==
LOC: M SMT 12:42
PROVIDERS: ATTEND Urology
DX: C67.9 Malignant neoplasm of bladder, unspecified (principal)

== ENCOUNTER 2025-03-23 06:24 | Day surgery (SDC) | payer MEDICARE ==
[~2025-03-23] VITALS: Ht 167.6 cm; Wt 64.0 kg
[~2025-03-23 06:24] MED LIST changes: +ERGO500029 PO; +LINZ145C PO; -STOO100C25 PO; +STOO1CAP PO
[2025-03-23] MEDS ORDERED: dexmedeTOMIDine (4 MCG/ML) 200 MCG/50 ML BTL As Ordered ONE (06:49)
[2025-03-23] MEDS ORDERED: ACETAMINOPHEN 1000MG/100ML IV BAG As Ordered ONE (06:49)
[2025-03-23] MEDS ORDERED: LIDOCAINE 2% 100 MG/5 ML SDV (FOR ANES.) As Ordered ONE (06:49)
[2025-03-23] MEDS ORDERED: dexAMETHasone 4 MG/ML 1 ML VIAL As Ordered ONE (06:55)
[2025-03-23] MEDS ORDERED: ONDANSETRON 4MG/2ML VIAL As Ordered ONE (06:55)
[2025-03-23] MEDS ORDERED: ROCURONIUM BROMIDE 50MG/5ML VIAL As Ordered ONE (07:00)
[2025-03-23] MEDS ORDERED: MIDAZOLAM INJ 2 MG/2 ML VIAL As Ordered ONE (07:31)
[2025-03-23] MEDS: ceFAZolin SOD 2 GM IV ONCE IV ONE (07:52)
[2025-03-23] MEDS ORDERED: SUGAMMADEX SODIUM 200 MG/2 ML VIAL As Ordered ONE (08:08)
[2025-03-23] MEDS ORDERED: HYDROMORPHONE HCL 0.5 MG/0.5 ML SYRINGE IV PRN (08:20)
[2025-03-23] MEDS ORDERED: ONDANSETRON 4MG/2ML VIAL IV PRN (08:20)
[2025-03-23] MEDS ORDERED: LR 1,000 ML IV SCH (08:20)
[2025-03-23 10:31] VITALS: BP 131/68; TEMP 96.8; O2SAT 97
== END 2025-03-23 10:40 | disposition home or self-care (01) ==
LOC: M SDC 06:24
PROVIDERS: ATTEND Urology
DX: C67.4 Malignant neoplasm of posterior wall of bladder (principal); I10 Essential (primary) hypertension; I69.351 Hemiplegia and hemiparesis following cerebral infarction affecting right dominant side; E78.00 Pure hypercholesterolemia, unspecified; Z85.828 Personal history of other malignant neoplasm of skin; K21.9 Gastro-esophageal reflux disease without esophagitis; F17.210 Nicotine dependence, cigarettes, uncomplicated; Z79.899 Other long term (current) drug therapy; Z79.02 Long term (current) use of antithrombotics/antiplatelets; Z79.82 Long term (current) use of aspirin; Z88.2 Allergy status to sulfonamides; Z90.13 Acquired absence of bilateral breasts and nipples; Z90.710 Acquired absence of both cervix and uterus
CPT/HCPCS: 52234; 88305; J0131; J0688; J1100; J2250; J2405; J3010